=== PATIENT | female | born 1960 | race Two or more races ===

== ENCOUNTER → 2017-04-21 | Outpatient (CLI) | payer MEDICARE ==
[2017-04-21 12:31] LABS: Basophils # (A) 0.1 k/uL (0-0.2); Basophils % (A) 1 %; CH 28.5; CHCM 32.6; Eosinophils # (A) 0.1 k/uL (0-0.7); Eosinophils % (A) 1 %; HCT 39.2 % (34.0-46.0); HDW 2.11; HGB 13.1 gm/dL (11.4-16.0); Luc % (Auto) 2; Lymphocytes % (A) 32 %; MCH 29.3 pg (25.0-35.0); MCHC 33.4 g/dL (31.0-37.0); MCV 87.9 fL (80.0-100.0); Monocytes # (A) 0.6 k/uL (0-1.0); Monocytes % (A) 9 %; Neutrophils # (A) 3.5 k/uL (1.3-7.7); Neutrophils % (A) 56 %; RBC 4.46 m/uL (3.80-5.40); RDW 14.5 % (11.5-15.5); WBC 6.4 k/uL (3.8-10.6); WBC (Perox) 6.26
[2017-04-21 12:55] LABS: ALT 51 U/L (9-52); AST 29 U/L (14-36)
== END ==
LOC: LABWHC1 11:41
PROVIDERS: ATTEND Psychiatry & Neurology Neurology
DX: G35 Multiple sclerosis (principal)
CPT/HCPCS: 36415; 84450; 84460; 85025

== ENCOUNTER → 2017-12-08 | Outpatient (CLI) | payer MEDICARE ==
[2017-12-08 13:58] LABS: ALT 46 U/L (9-52); AST 25 U/L (14-36); Basophils # (A) 0.1 k/uL (0-0.2); Basophils % (A) 1 %; Eosinophils # (A) 0.1 k/uL (0-0.7); Eosinophils % (A) 1 %; HGB 13.5 gm/dL (11.4-16.0); Lymphocytes # (A) 1.8 k/uL (1.0-4.8); Lymphocytes % (A) 31 %; MCH 29.3 pg (25.0-35.0); MCV 88.8 fL (80.0-100.0); Mean Platelet Volume 9.6; Monocytes # (A) 0.5 k/uL (0-1.0); Monocytes % (A) 8 %; Neutrophils # (A) 3.2 k/uL (1.3-7.7); Neutrophils % (A) 57 %; Platelet Count 209 k/uL (150-450); RBC 4.61 m/uL (3.80-5.40); RDW 13.6 % (11.5-15.5); WBC 5.6 k/uL (3.8-10.6)
== END | disposition home or self-care (01) ==
LOC: LABWHC1 13:02
PROVIDERS: ATTEND Psychiatry & Neurology Neurology
DX: G35 Multiple sclerosis (principal)
CPT/HCPCS: 36415; 84450; 84460; 85025

== ENCOUNTER 2018-12-19 17:29 | Inpatient (IN) | payer MEDICARE ==
[2018-12-19] MEDS ORDERED: ALBUTEROL NEBULIZED 2.5 MG/3 ML INHALATION STA (17:59)
[2018-12-19] MEDS ORDERED: SODIUM CHLORIDE 0.9% 1,000 ML IV STA ×2 (17:59→18:21)
[2018-12-19] MEDS ORDERED: methylPREDNISolone SOD SUCCI 125 MG/2 ML VIAL IV STA (17:59)
[2018-12-19] MEDS ORDERED: IPRATROPIUM 0.5 MG/2.5 ML NEBU INHALATION STA (17:59)
--- NOTE | 2018-12-19 17:59 | ED ---
SOB HPI - General Chief Complaint: Shortness of Breath Stated Complaint: SOB Time Seen by Provider: 12/19/18 17:58 Source: patient, family, RN notes reviewed, old records reviewed Mode of arrival: wheelchair Limitations: physical limitation - History of Present Illness Initial Comments: This is a 50-year-old female the ER for evaluation. Patient has no history of asthma MS, patient was essay for severe shortness of breath. Feels weak feels dehydrated. Unable to take deep breaths. Denies fever, does have increased cough and congestion. Patient states she's Unable to eat, severely dehydrated and weak. No other complaints no headaches no abdominal pain no new neurological complaints MD Complaint: shortness of breath, cough, anxiety -: days(s) Radiation: other (No pain) Severity scale (1-10): 8 (Shortness of breath) Consistency: constant Improves With: rest, bronchodilators Worsens With: exertion, movement Known History Of: COPD, asthma Context: recent URI Associated Symptoms: cough, sputum production Treatments Prior to Arrival: bronchodilator - Related Data Home Medications Medication Instructions Recorded Confirmed Alendronate Sodium [Fosamax] 70 mg PO Q7D 12/19/18 12/19/18 Baclofen [Lioresal] 20 mg PO TID 12/19/18 12/19/18 Tiffany Back And Body (Unknown) 1 tab PO Q8HR PRN 12/19/18 12/19/18 Fesoterodine Fumarate [Toviaz] 8 mg PO DAILY 12/19/18 12/19/18 Fluticasone/Vilanterol [Breo 1 puff INHALATION RT-DAILY 12/19/18 12/19/18 Ellipta 100-25 Mcg Inhaler] Levothyroxine Sodium 150 mcg PO DAILY 12/19/18 12/19/18 Primidone [Mysoline] 50 mg PO TID 12/19/18 12/19/18 Simvastatin [Zocor] 20 mg PO DAILY 12/19/18 12/19/18 Tension Headache (Unknown) 1 tab PO Q4-6H 12/19/18 12/19/18 Teriflunomide [Aubagio] 14 mg PO DAILY 12/19/18 12/19/18 Allergies Allergy/AdvReac Type Severity Reaction Status Date / Time No Known Allergies Allergy Verified 12/19/18 18:31 Review of Systems ROS Statement: Those systems with pertinent positive or pertinent negative responses have been documented in the HPI. ROS Other: All systems not noted in ROS Statement are negative. Past Medical History Past Medical History: Asthma Additional Past Medical History / Comment(s): MS History of Any Multi-Drug Resistant Organisms: None Reported Past Psychological History: No Psychological Hx Reported Smoking Status: Current every day smoker Past Alcohol Use History: None Reported Past Drug Use History: None Reported General Exam Limitations: physical limitation General appearance: alert, anxious, in distress, cachectic Head exam: Present: atraumatic, normocephalic, normal inspection Eye exam: Present: normal appearance, PERRL, EOMI. Absent: scleral icterus, conjunctival injection, periorbital swelling ENT exam: Present: normal exam, mucous membranes moist Neck exam: Present: normal inspection. Absent: tenderness, meningismus, lymphadenopathy Respiratory exam: Present: respiratory distress, wheezes, accessory muscle use, decreased breath sounds, prolonged expiratory. Absent: rales, rhonchi, stridor Cardiovascular Exam: Present: normal rhythm, tachycardia, normal heart sounds. Absent: systolic murmur, diastolic murmur, rubs, gallop, clicks GI/Abdominal exam: Present: soft, normal bowel sounds. Absent: distended, tenderness, guarding, rebound, rigid Extremities exam: Present: normal inspection, full ROM, normal capillary refill. Absent: tenderness, pedal edema, joint swelling, calf tenderness Back exam: Present: normal inspection Neurological exam: Present: alert, oriented X3, CN II-XII intact Psychiatric exam: Present: normal affect, normal mood Skin exam: Present: warm, dry, intact, normal color. Absent: rash Course Vital Signs 12/19/18 12/19/18 12/19/18 17:38 17:56 18:18 Temperature 98.7 F Pulse Rate 102 H 85 Respiratory 24 20 Rate Blood Pressure 146/112 O2 Sat by Pulse 92 L Oximetry 12/19/18 12/19/18 12/19/18 18:37 18:49 19:01 Temperature Pulse Rate 93 98 101 H Respiratory Rate Blood Pressure O2 Sat by Pulse Oximetry - Reevaluation(s) Reevaluation #1: 12/19/18 19:20 Medical record reviewed Reevaluation #2: 12/19/18 19:20 no Improvement after prolonged breathing treatment Medical Decision Making - Medical Decision Making 58-year-old female the ER for evaluation, significantly acute asthma exacerbation. Severe dehydration. Patient be admitted for breathing treatments, steroids and rehydration - Lab Data Result diagrams: 12/19/18 18:15 12/19/18 18:15 Lab Results 12/19/18 12/19/18 12/19/18 Range/Units 18:15 18:15 18:15 WBC 6.5 (3.8-10.6) k/uL RBC 4.39 (3.80-5.40) m/uL Hgb 12.8 (11.4-16.0) gm/dL Hct 39.4 (34.0-46.0) % MCV 89.6 (80.0-100.0) fL MCH 29.1 (25.0-35.0) pg MCHC 32.5 (31.0-37.0) g/dL RDW 14.1 (11.5-15.5) % Plt Count 222 (150-450) k/uL Neutrophils % 79 % Lymphocytes % 9 % Monocytes % 9 % Eosinophils % 1 % Basophils % 1 % Neutrophils # 5.1 (1.3-7.7) k/uL Lymphocytes # 0.6 L (1.0-4.8) k/uL Monocytes # 0.6 (0-1.0) k/uL Eosinophils # 0.0 (0-0.7) k/uL Basophils # 0.1 (0-0.2) k/uL PT (9.0-12.0) sec INR (<1.2) APTT (22.0-30.0) sec Sodium 140 (137-145) mmol/L Potassium 3.9 (3.5-5.1) mmol/L Chloride 107 (98-107) mmol/L Carbon Dioxide 24 (22-30) mmol/L Anion Gap 9 mmol/L BUN 27 H (7-17) mg/dL Creatinine 0.62 (0.52-1.04) mg/dL Est GFR (CKD-EPI)AfAm >90 (>60 ml/min/1.73 sqM) Est GFR (CKD-EPI)NonAf >90 (>60 ml/min/1.73 sqM) Glucose 157 H (74-99) mg/dL Calcium 9.6 (8.4-10.2) mg/dL Magnesium 1.9 (1.6-2.3) mg/dL Total Bilirubin 0.3 (0.2-1.3) mg/dL AST 61 H (14-36) U/L ALT 81 H (9-52) U/L Alkaline Phosphatase 176 H (38-126) U/L NT-Pro-B Natriuret Pep 1110 pg/mL Total Protein 6.7 (6.3-8.2) g/dL Albumin 3.9 (3.5-5.0) g/dL Serum Alcohol <10 mg/dL 12/19/18 Range/Units 18:15 WBC (3.8-10.6) k/uL RBC (3.80-5.40) m/uL Hgb (11.4-16.0) gm/dL Hct (34.0-46.0) % MCV (80.0-100.0) fL MCH (25.0-35.0) pg MCHC (31.0-37.0) g/dL RDW (11.5-15.5) % Plt Count (150-450) k/uL Neutrophils % % Lymphocytes % % Monocytes % % Eosinophils % % Basophils % % Neutrophils # (1.3-7.7) k/uL Lymphocytes # (1.0-4.8) k/uL Monocytes # (0-1.0) k/uL Eosinophils # (0-0.7) k/uL Basophils # (0-0.2) k/uL PT 11.4 (9.0-12.0) sec INR 1.1 (<1.2) APTT 26.6 (22.0-30.0) sec Sodium (137-145) mmol/L Potassium (3.5-5.1) mmol/L Chloride (98-107) mmol/L Carbon Dioxide (22-30) mmol/L Anion Gap mmol/L BUN (7-17) mg/dL Creatinine (0.52-1.04) mg/dL Est GFR (CKD-EPI)AfAm (>60 ml/min/1.73 sqM) Est GFR (CKD-EPI)NonAf (>60 ml/min/1.73 sqM) Glucose (74-99) mg/dL Calcium (8.4-10.2) mg/dL Magnesium (1.6-2.3) mg/dL Total Bilirubin (0.2-1.3) mg/dL AST (14-36) U/L ALT (9-52) U/L Alkaline Phosphatase (38-126) U/L NT-Pro-B Natriuret Pep pg/mL Total Protein (6.3-8.2) g/dL Albumin (3.5-5.0) g/dL Serum Alcohol mg/dL - Radiology Data Radiology results: report reviewed (Chest x-rays negative for acute disease, ultrasound pending), image reviewed Disposition Clinical Impression: Asthma with exacerbation, Asthma with status asthmaticus, Acute exacerbation of chronic obstructive airways disease Disposition: ADMITTED IP TO THIS HOSP Condition: Undetermined Is patient prescribed a controlled substance at d/c from ED?: No Referrals: Joanna Butt DO [Primary Care Provider] - 1-2 days
[2018-12-19] MEDS ORDERED: PANTOPRAZOLE 40 MG/10 ML VIAL IVP STA (18:21)
[2018-12-19 18:34] LABS: Basophils # (A) 0.1 k/uL (0-0.2); Basophils % (A) 1 %; Eosinophils % (A) 1 %; HCT 39.4 % (34.0-46.0); HGB 12.8 gm/dL (11.4-16.0); Lymphocytes # (A) 0.6 k/uL (1.0-4.8); Lymphocytes % (A) 9 %; MCH 29.1 pg (25.0-35.0); MCHC 32.5 g/dL (31.0-37.0); MCV 89.6 fL (80.0-100.0); Mean Platelet Volume 8.6; Monocytes # (A) 0.6 k/uL (0-1.0); Monocytes % (A) 9 %; Neutrophils # (A) 5.1 k/uL (1.3-7.7); Neutrophils % (A) 79 %; Platelet Count 222 k/uL (150-450); RBC 4.39 m/uL (3.80-5.40); RDW 14.1 % (11.5-15.5); WBC 6.5 k/uL (3.8-10.6)
[2018-12-19 18:46] LABS: ALT 81 U/L (9-52); AST 61 U/L (14-36); Albumin 3.9 g/dL (3.5-5.0); Alcohol <10 mg/dL; Alkaline Phosphatase 176 U/L (38-126); Anion Gap 9 mmol/L; Blood Urea Nitrogen 27 mg/dL (7-17); Calcium 9.6 mg/dL (8.4-10.2); Carbon Dioxide 24 mmol/L (22-30); Chloride 107 mmol/L (98-107); Glucose 157 mg/dL (74-99); INR 1.1 (<1.2); Magnesium 1.9 mg/dL (1.6-2.3); Partial Thromboplastin Time 26.6 sec (22.0-30.0); Potassium 3.9 mmol/L (3.5-5.1); Prothrombin Time 11.4 sec (9.0-12.0); Sodium 140 mmol/L (137-145); Total Bilirubin 0.3 mg/dL (0.2-1.3); Total Protein 6.7 g/dL (6.3-8.2)
--- NOTE | 2018-12-19 19:10 | XR ---
EXAMINATION: XR chest 1V portable DATE AND TIME: 12/19/2018 6:29 PM CLINICAL INDICATION: PHH; sob TECHNIQUE: AP upright portable COMPARISON: None FINDINGS: Thoracic architectural distortion baseline changes noted. There is marked hyperinflation and there is marked attenuation of upper lobe vasculature consistent w ith emphysematous changes. No acute lung process is evident. Pleural spaces are negative. Cardiac mediastinal silhouette and bones and soft tissues are unremarkable. IMPRESSION: No acute process.
[2018-12-19] MEDS ORDERED: IPRATROPIUM-ALBUTEROL 3 ML NEB INHALATION STA (19:19)
[2018-12-19] MEDS: IPRATROPIUM-ALBUTEROL 3 ML NEB INHALATION SCH (20:30)
--- NOTE | 2018-12-19 21:09 | US ---
EXAMINATION TYPE: US gallbladder DATE OF EXAM: 12/19/2018 COMPARISON: NONE CLINICAL HISTORY: Pain. Pain. EXAM MEASUREMENTS: Liver Length: 16.0 cm Gallbladder Wall: 0.2 cm CBD: 0.3 cm Right Kidney: 10.3 x 4.2 x 3.5 cm Pancreas: wnl Liver: wnl Gallbladder: Appears contracted. Evidence for sonographic Paz's sign: No CBD: wnl Right Kidney: Limited due to rib shadowing. IMPRESSION: No acute process.
[2018-12-19] MEDS: SODIUM CHLORIDE 0.9% 1,000 ML IV SCH (22:01)
[2018-12-19] MEDS: methylPREDNISolone SOD SUCCI 125 MG/2 ML VIAL IV SCH (23:52)
[2018-12-20] MEDS: methylPREDNISolone SOD SUCCI 125 MG/2 ML VIAL IV SCH ×3 (06:14→17:13)
[2018-12-20] MEDS: SODIUM CHLORIDE 0.9% 1,000 ML IV SCH ×2 (06:16→17:14)
[2018-12-20] MEDS: IPRATROPIUM-ALBUTEROL 3 ML NEB INHALATION SCH ×4 (08:26→20:27)
[2018-12-20] MEDS ORDERED: Teriflunomide [Aubagio] 14 MG PO SCH (09:00)
[2018-12-20] MEDS ORDERED: NON-FORMULARY DRUG (Simvastatin [Zocor] 20 MG) PO SCH (09:00)
[2018-12-20 09:47] LABS: Basophils % (A) 0 %; Eosinophils # (A) 0.1 k/uL (0-0.7); Eosinophils % (A) 1 %; HCT 33.8 % (34.0-46.0); HGB 10.8 gm/dL (11.4-16.0); Lymphocytes # (A) 0.7 k/uL (1.0-4.8); Lymphocytes % (A) 13 %; MCH 29.4 pg (25.0-35.0); MCHC 32.1 g/dL (31.0-37.0); MCV 91.5 fL (80.0-100.0); Mean Platelet Volume 9.5; Monocytes # (A) 0.4 k/uL (0-1.0); Monocytes % (A) 7 %; Neutrophils # (A) 4.4 k/uL (1.3-7.7); Neutrophils % (A) 78 %; Platelet Count 223 k/uL (150-450); RBC 3.69 m/uL (3.80-5.40); RDW 13.8 % (11.5-15.5); WBC 5.6 k/uL (3.8-10.6)
[2018-12-20 10:05] LABS: ALT 73 U/L (9-52); AST 43 U/L (14-36); Alkaline Phosphatase 131 U/L (38-126); Anion Gap 4 mmol/L; Blood Urea Nitrogen 19 mg/dL (7-17); Calcium 8.3 mg/dL (8.4-10.2); Carbon Dioxide 24 mmol/L (22-30); Chloride 115 mmol/L (98-107); Glucose 110 mg/dL (74-99); Sodium 143 mmol/L (137-145); Total Bilirubin 0.2 mg/dL (0.2-1.3); Total Protein 5.6 g/dL (6.3-8.2)
[2018-12-20] MEDS: PRIMIDONE 50 MG TAB PO SCH ×3 (10:11→21:04)
[2018-12-20] MEDS: AZITHROMYCIN 500 MG TAB PO SCH (10:11)
[2018-12-20] MEDS: TROSPIUM CHLORIDE 20 MG TABLET PO SCH ×2 (10:11→21:46)
[2018-12-20] MEDS: NICOTINE 21MG/24HR PATCH TRANSDERM SCH (10:12)
[2018-12-20] MEDS: BACLOFEN 10 MG TAB PO SCH ×3 (10:13→21:04)
[2018-12-20 11:14] LABS: T4, Free (Free Thyroxine) 1.74 ng/dL (0.78-2.19)
--- NOTE | 2018-12-20 11:28 | P.HPIM ---
History of Present Illness H&P Date: 12/20/18 This is a 58-year-old female patient of Dr. Butt. Patient presented to the ER with complaints of increased shortness of breath. Patient reports that over the past 3 days she's been increasingly short of breath and increased weakness. Patient does have past medical history of asthma, 2 pack-a-day smoking history and MS in which she follows with Dr. Montano. Patient's troponin also slightly e levated, 0.099, 0.075 and 0.052. EKG completed showing normal sinus rhythm, septal infarct, age undetermined. Cardiology services have been consulted. Chest x-ray completed showing no acute process. started on Solu-Medrol IV and azithromycin for antibiotic. Per nursing staff during the night patient expressed suicidal ideation with the plan. Patient was placed on suicide precautions psychiatry services have been consulted. At this time patient doesn't state some improvement with shortness of breath. Patient does have a sitter and at bedside. This time patient denies chest pain. Patient denies nausea vomiting or diarrhea. Patient denies any urinary burning or frequency Review of Systems Please refer to HPI otherwise unremarkable Past Medical History Past Medical History: Asthma, COPD Additional Past Medical History / Comment(s): MS History of Any Multi-Drug Resistant Organisms: None Reported Past Anesthesia/Blood Transfusion Reactions: No Reported Reaction Past Psychological History: No Psychological Hx Reported Smoking Status: Current every day smoker Past Alcohol Use History: None Reported Past Drug Use History: None Reported Medications and Allergies Home Medications Medication Instructions Recorded Confirmed Type Alendronate Sodium [Fosamax] 70 mg PO Q7D 12/19/18 12/19/18 History Baclofen [Lioresal] 20 mg PO TID 12/19/18 12/19/18 History Tiffany Back And Body (Unknown) 1 tab PO Q8HR PRN 12/19/18 12/19/18 History Fesoterodine Fumarate [Toviaz] 8 mg PO DAILY 12/19/18 12/19/18 History Fluticasone/Vilanterol [Breo 1 puff INHALATION RT-DAILY 12/19/18 12/19/18 History Ellipta 100-25 Mcg Inhaler] Levothyroxine Sodium 150 mcg PO DAILY 12/19/18 12/19/18 History Primidone [Mysoline] 50 mg PO TID 12/19/18 12/19/18 History Simvastatin [Zocor] 20 mg PO DAILY 12/19/18 12/19/18 History Tension Headache (Unknown) 1 tab PO Q4-6H 12/19/18 12/19/18 History Teriflunomide [Aubagio] 14 mg PO DAILY 12/19/18 12/19/18 History Allergies Allergy/AdvReac Type Severity Reaction Status Date / Time No Known Allergies Allergy Verified 12/19/18 18:31 Physical Exam Vitals: Vital Signs Temp Pulse Pulse Resp BP BP Pulse Ox 12/20/18 08:38 100 12/20/18 08:27 100 12/20/18 04:00 97.9 F 75 18 147/62 98 12/20/18 03:34 18 12/20/18 00:00 98.4 F 80 18 103/51 96 12/19/18 22:02 98.8 F 97 18 117/54 97 12/19/18 20:34 92 12/19/18 20:24 91 12/19/18 19:01 101 H 12/19/18 19:00 99.1 F 101 H 136/88 99 12/19/18 18:49 98 12/19/18 18:37 93 12/19/18 18:30 87 142/92 100 12/19/18 18:18 85 12/19/18 18:00 90 126/95 96 12/19/18 17:56 20 12/19/18 17:53 91 L 12/19/18 17:38 98.7 F 102 H 24 146/112 92 L Intake and Output 12/19/18 12/20/18 12/20/18 22:59 06:59 14:59 Intake Total 400 200 0 Balance 400 200 0 Intake: Intake, IV Titration 200 200 Amount Sodium Chloride 0.9% 1, 200 200 000 ml @ 100 mls/hr IV . Q10H [facility] Rx#:[id number] Oral 200 0 Other: Voiding Method Incontinent # Voids 1 1 Weight 45.359 kg 45 kg Head normocephalic Neck supple Lungs diminshed bilaterally with expiratory wheezing Heart regular rate and rhythm S1-S2, no rub or gallop Abdomen is soft nontender nondistended positive bowel sounds no hepatosplenomegaly Extremities no edema Neuro alert and orientated to 3 Results CBC & Chem 7: 12/20/18 06:27 12/20/18 06:27 Labs: Abnormal Lab Results - Last 24 Hours (Table) 12/19/18 12/19/18 12/19/18 Range/Units 18:15 18:15 18:15 RBC (3.80-5.40) m/uL Hgb (11.4-16.0) gm/dL Hct (34.0-46.0) % Lymphocytes # 0.6 L (1.0-4.8) k/uL Chloride (98-107) mmol/L BUN 27 H (7-17) mg/dL Creatinine (0.52-1.04) mg/dL Glucose 157 H (74-99) mg/dL Calcium (8.4-10.2) mg/dL AST 61 H (14-36) U/L ALT 81 H (9-52) U/L Alkaline Phosphatase 176 H (38-126) U/L Troponin I 0.099 H* (0.000-0.034) ng/mL Total Protein (6.3-8.2) g/dL Albumin (3.5-5.0) g/dL TSH (0.465-4.680) mIU/L 12/20/18 12/20/18 12/20/18 Range/Units 00:07 06:27 06:27 RBC 3.69 L (3.80-5.40) m/uL Hgb 10.8 L (11.4-16.0) gm/dL Hct 33.8 L (34.0-46.0) % Lymphocytes # 0.7 L (1.0-4.8) k/uL Chloride (98-107) mmol/L BUN (7-17) mg/dL Creatinine (0.52-1.04) mg/dL Glucose (74-99) mg/dL Calcium (8.4-10.2) mg/dL AST (14-36) U/L ALT (9-52) U/L Alkaline Phosphatase (38-126) U/L Troponin I 0.075 H* 0.052 H* (0.000-0.034) ng/mL Total Protein (6.3-8.2) g/dL Albumin (3.5-5.0) g/dL TSH (0.465-4.680) mIU/L 03/26/19 Range/Units 06:27 RBC (3.80-5.40) m/uL Hgb (11.4-16.0) gm/dL Hct (34.0-46.0) % Lymphocytes # (1.0-4.8) k/uL Chloride 115 H (98-107) mmol/L BUN 19 H (7-17) mg/dL Creatinine 0.47 L (0.52-1.04) mg/dL Glucose 110 H (74-99) mg/dL Calcium 8.3 L (8.4-10.2) mg/dL AST 43 H (14-36) U/L ALT 73 H (9-52) U/L Alkaline Phosphatase 131 H (38-126) U/L Troponin I (0.000-0.034) ng/mL Total Protein 5.6 L (6.3-8.2) g/dL Albumin 3.0 L (3.5-5.0) g/dL TSH <0.015 L (0.465-4.680) mIU/L Thrombosis Risk Factor Assmnt - Choose All That Apply Any of the Below Risk Factors Present?: Yes Each Factor Represents 1 point: Age 41-60 years Other Risk Factors: No Other congenital or acquired thrombophilia - If yes, enter type in comment: No Thrombosis Risk Factor Assessment Total Risk Factor Score: 1 Thrombosis Risk Factor Assessment Level: Low Risk Assessment and Plan Assessment: 1. Shortness of breath with acute asthma exacerbation and acute exacerbation of chronic obstructive airway disease. Chest x-ray completed in ER showing no a cute process. Patient has been started on Solu-Medrol 60 mg. Pulmonary services have been consulted. Patient started on azithromycin. Sputum culture ordered. Repeat 2 view chest x-ray ordered for a.m. 2. Elevated troponins. Troponins 0.099, 0.075 0.052 cardiology services have been consulted. 3. Elevated liver enzymes. Initial AST 61, ALT 81 and alkaline phosphatase 176. Gallbladder ultrasound was completed showing no acute process. Liver enzymes are trending down. Statin currently on hold 4. Suicidal ideation. Patient expressed suicide plan to nursing staff throughout night. Patient maintained on suicide precautions. Psychology service is requested 5. Nicotine dependence. Patient reports she smokes 2 packs per day. Patient educated greater than 3 minutes on smoking cessation. Nicotine patch ordered 6. Multiple sclerosis. Home medications resumed. Patient reports she follows with Dr. Walsh for neurology services DVT prophylaxis Lovenox. GI prophylaxis Protonix Patient maintained on suicide precautions. Pulmonary, cardiology and psychiatry services consulted Patient maintained on Solu-Medrol, DuoNeb breathing treatments and azithromycin Time with Patient: Greater than 30 (Greater than 60% of the total time spent in counseling and coordination of care. I performed an examination of the patient and discussed their management with the Nurse Practitioner. I have reviewed the Nurse Practitioner's notes and agree with the documented findings and plan of care)
[2018-12-20] MEDS: ENOXAPARIN 40 MG/0.4 ML SYRINGE SQ SCH (12:57)
--- NOTE | 2018-12-20 17:17 | CONS ---
CONSULTATION REASON FOR CONSULTATION: Elevated troponin. This is a 58-year-old lady who has history of bronchial asthma and multiple sclerosis. She came into the hospital with complaints of increasing shortness of breath for the past 3-4 days and weakness and lack of energy. She has history of bronchial asthma, 2+ pack/years of smoking history and also multiple sclerosis. She sees Dr. Rocha from a primary care standpoint. She has apparently been hypoxic almost, wheezing for 3-4 days. After arrival, her troponin levels have been in the range of 0.09, 0.07 and 0.05. EKG shows sinus rhythm with poor R-wave progression. No acute changes are noted. Troponin elevation seems to be the result of some hypoxemia as a result of her exacerbation of COPD. After she arrived, she complained of some suicidal thoughts and therefore she is now being placed on a suicidal watch with a sitter and her . Denies any symptoms of chest pain. She insists that she did have chest pain even yesterday; all she had was shortness of breath. She seems to be pretty positive and does not have any negative thoughts. PAST MEDICAL HISTORY: Remarkable for asthma, bronchial asthma, multiple sclerosis, COPD, past history of smoking. SOCIAL HISTORY: Patient does not consume alcohol but smokes every day more than 2 packs. ALLERGIES: NONE. MEDICATIONS: 1. Fosamax. 2. Steroid inhaler. 3. Levothyroxine. 4. Simvastatin 20 mg daily. 5. Vitamins. PHYSICAL EXAMINATION: On examination, blood pressure is 127/70. Pulse rate is about 80 per minute, regular. HEENT unremarkable. Fundus was not examined by me. Neck is supple. There is JVD of 1 cm. No carotid bruit. Heart exam reveals S1, S2 heard normally. Heart sounds are heard distantly. There is a lot of respiratory noise. There are no murmurs. Lungs reveal scattered expiratory rhonchi. Abdomen is soft, nontender. Lower extremities reveal diminished pulses. CENTRAL NERVOUS SYSTEM: Grossly no focal deficits. EKG revealed a sinus mechanism with a lot of artifact, poor R-wave progression. No acute changes. We will need to repeat EKG. I reviewed the labs and noted that patient's thyroid levels are slightly higher with a low TSH. IMPRESSION: 1. Elevated troponin noted here. It is probably a reflection of some hypoxemia for nearly 72 hours or so. It does not represent primary myocardial infarction. 2. Exacerbation of chronic obstructive pulmonary disease. 3. History of smoking. 4. Suicidal ideation. RECOMMENDATIONS: From a cardiac standpoint, I am recommending that we decrease the Synthroid from 150 to 112 mcg daily. She is on steroids and also on bronchodilators. We will continue the subcutaneous Lovenox that has been ordered. We will obtain an echocardiogram to assess LV function. Based on clinical course, I will make further recommendations. This does not suggest acute myocardial injury, but given patient's risk factors, it is quite possible that she may have underlying CAD. We will reduce the dose of Synthroid, obtain echocardiogram, continue Lovenox and based on clinical course make further recommendations. Thank you very much for the consult. TOREY / DEISY: [id number] /
[2018-12-21] MEDS: methylPREDNISolone SOD SUCCI 125 MG/2 ML VIAL IV SCH ×5 (00:11→22:46)
[2018-12-21] MEDS: SODIUM CHLORIDE 0.9% 1,000 ML IV SCH ×3 (01:30→20:54)
[2018-12-21] MEDS: IPRATROPIUM-ALBUTEROL 3 ML NEB INHALATION SCH ×4 (05:53→20:28)
[2018-12-21] MEDS: SYMBICORT 80-4.5 MCG INHALER INHALATION SCH ×2 (05:53→20:28)
[2018-12-21] MEDS: LEVOTHYROXINE 112 MCG TAB PO SCH (06:08)
[2018-12-21] MEDS: PANTOPRAZOLE 40 MG TABLET PO SCH (06:08)
[2018-12-21] MEDS ORDERED: LEVOTHYROXINE 75 MCG TAB PO SCH (06:30)
[2018-12-21] MEDS ORDERED: LEVOTHYROXINE 125 MCG TAB PO SCH (06:30)
[2018-12-21 06:42] LABS: Basophils % (A) 0 %; Eosinophils # (A) 0.1 k/uL (0-0.7); Eosinophils % (A) 1 %; HCT 33.6 % (34.0-46.0); HGB 10.8 gm/dL (11.4-16.0); Lymphocytes # (A) 0.8 k/uL (1.0-4.8); Lymphocytes % (A) 16 %; MCH 29.4 pg (25.0-35.0); MCV 91.9 fL (80.0-100.0); Mean Platelet Volume 8.9; Monocytes # (A) 0.5 k/uL (0-1.0); Monocytes % (A) 9 %; Neutrophils % (A) 73 %; Platelet Count 199 k/uL (150-450); RBC 3.66 m/uL (3.80-5.40); RDW 14.5 % (11.5-15.5); WBC 5.5 k/uL (3.8-10.6)
[2018-12-21 06:57] LABS: ALT 65 U/L (9-52); AST 37 U/L (14-36); Alkaline Phosphatase 121 U/L (38-126); Anion Gap 4 mmol/L; Blood Urea Nitrogen 13 mg/dL (7-17); Calcium 8.4 mg/dL (8.4-10.2); Carbon Dioxide 25 mmol/L (22-30); Chloride 113 mmol/L (98-107); Glucose 105 mg/dL (74-99); Potassium 4.1 mmol/L (3.5-5.1); Sodium 142 mmol/L (137-145); Total Bilirubin 0.2 mg/dL (0.2-1.3); Total Protein 5.5 g/dL (6.3-8.2)
--- NOTE | 2018-12-21 08:54 | XR ---
EXAMINATION TYPE: XR chest 2V DATE OF EXAM: 12/21/2018 COMPARISON: 12/19/2018 HISTORY: 58-year-old female ICU follow-up TECHNIQUE: AP and lateral views FINDINGS: Patient is rotated towards the right. Heart normal size. Hyperinflation. Trace effusion seen on the l ateral view. Otherwise, no consolidation or pleural effusion. IMPRESSION: COPD and trace effusions on the lateral view.
[2018-12-21] MEDS ORDERED: ENOXAPARIN 40 MG/0.4 ML SYRINGE SQ SCH (09:00)
[2018-12-21] MEDS: PRIMIDONE 50 MG TAB PO SCH ×3 (09:43→20:54)
[2018-12-21] MEDS: ENOXAPARIN 40 MG/0.4 ML SYRINGE SQ SCH (09:43)
[2018-12-21] MEDS: AZITHROMYCIN 500 MG TAB PO SCH (09:43)
[2018-12-21] MEDS: NICOTINE 21MG/24HR PATCH TRANSDERM SCH (09:43)
[2018-12-21] MEDS: BACLOFEN 10 MG TAB PO SCH ×3 (09:43→20:54)
[2018-12-21] MEDS: TROSPIUM CHLORIDE 20 MG TABLET PO SCH ×2 (09:44→20:54)
--- NOTE | 2018-12-21 11:04 | P.CNPUL ---
History of Present Illness Consult date: 12/21/18 Requesting physician: Audrey Jessica Reason for consult: dyspnea Chief complaint: Shortness of breath History of present illness: This is a pleasant 58-year-old frail cachectic female patient who follows with Dr. Butt as her primary care physician. She has a history of chronic bronchial asthma, multiple sclerosis, chronic and ongoing tobacco dependence 2 packs per day, hyperlipidemia, hypothyroidism. She presented here to the emergency room on 12/19/2018 with complaints of increasing shortness of breath, weakness, dehydration. She's been unable to eat. She is extremely cachectic. Chest x-ray showed no acute pulmonary process. White count 5.5. Hemoglobin 10.8. Creatinine 0.45. Troponin 0.099, 0.075, 0.052. TSH less than 0.015. AST 37, ALT 65. The patient is seen today in consultation on the selective care unit. She is currently awake and alert in no acute distress. She is maintained on Breo and albuterol in the outpatient setting. She's been initiated on DuoNeb inhalations, Symbicort, IV Solu-Medrol. Antibiotics in the form of azithromycin. NicoDerm patch is in place. Her weight is 43 kg. She has expressed suicidal ideations to the nursing staff. A sitter is at the bedside. Review of Systems REVIEW OF SYSTEMS: CONSTITUTIONAL: Continued and ongoing weight loss. EYES: Denies change in vision. EARS, NOSE, MOUTH, THROAT: Denies headaches, denies sore throat. CARDIOVASCULAR: Denies chest pain, palpitations or syncopal episodes. RESPIRATORY: Positive for shortness of breath, cough, congestion no hemoptysis. GASTROINTESTINAL: Denies change in appetite, denies abdominal pain GENITOURINARY: Denies hematuria, denies infections. MUSKULOSKELETAL: Denies pain, denies swelling. INTEGUMENTARY: Denies rash, denies eczema. NEUROLOGICAL: Denies recent memory loss, no recent seizure activity. PSYCHIATRIC: Positive for depression, suicidal ideation. HEMATOLOGIC/LYMPHATIC: Denies anemia, denies enlarged lymph nodes. Past Medical History Past Medical History: Asthma, COPD, Hyperlipidemia, Thyroid Disorder Additional Past Medical History / Comment(s): MS History of Any Multi-Drug Resistant Organisms: None Reported Past Anesthesia/Blood Transfusion Reactions: No Reported Reaction Past Psychological History: No Psychological Hx Reported Smoking Status: Current every day smoker Past Alcohol Use History: None Reported Past Drug Use History: None Reported Medications and Allergies Home Medications Medication Instructions Recorded Confirmed Type Alendronate Sodium [Fosamax] 70 mg PO Q7D 12/19/18 12/19/18 History Baclofen [Lioresal] 20 mg PO TID 12/19/18 12/19/18 History Tiffany Back And Body (Unknown) 1 tab PO Q8HR PRN 12/19/18 12/19/18 History Fesoterodine Fumarate [Toviaz] 8 mg PO DAILY 12/19/18 12/19/18 History Fluticasone/Vilanterol [Breo 1 puff INHALATION RT-DAILY 12/19/18 12/19/18 History Ellipta 100-25 Mcg Inhaler] Levothyroxine Sodium 150 mcg PO DAILY 12/19/18 12/19/18 History Primidone [Mysoline] 50 mg PO TID 12/19/18 12/19/18 History Simvastatin [Zocor] 20 mg PO DAILY 12/19/18 12/19/18 History Tension Headache (Unknown) 1 tab PO Q4-6H 12/19/18 12/19/18 History Teriflunomide [Aubagio] 14 mg PO DAILY 12/19/18 12/19/18 History Allergies Allergy/AdvReac Type Severity Reaction Status Date / Time No Known Allergies Allergy Verified 12/19/18 18:31 Physical Exam Vitals: Vital Signs Temp Pulse Pulse Resp BP Pulse Ox 12/21/18 08:00 98.1 F 92 17 113/83 94 L 12/21/18 06:19 72 12/21/18 05:53 72 12/21/18 04:00 98.4 F 75 18 141/79 98 12/21/18 00:00 98.4 F 77 18 123/68 98 12/20/18 20:40 100 12/20/18 20:27 98 12/20/18 20:00 98.6 F 97 20 120/64 94 L 12/20/18 16:33 100 12/20/18 16:19 98 95 12/20/18 16:00 82 16 123/63 97 12/20/18 13:08 100 12/20/18 12:57 100 12/20/18 12:00 90 16 127/59 92 L Intake and Output 12/20/18 12/21/18 12/21/18 22:59 06:59 14:59 Intake Total 340 350 Balance 340 350 Intake: Intake, IV Titration 300 Amount Sodium Chloride 0.9% 1, 300 000 ml @ 100 mls/hr IV . Q10H [facility] Rx#:[id number] Oral 340 50 Other: Voiding Method Incontinent Incontinent Incontinent # Voids 2 1 # Bowel Movements 1 1 Weight 43 kg GENERAL EXAM: Frail, cachectic 58-year-old female. Alert, comfortable in no a pparent distress. On 2 L nasal cannula HEAD: Normocephalic. EYES: Normal reaction of pupils, equal size. NOSE: Clear with pink turbinates. THROAT: No erythema or exudates. NECK: No masses, no JVD. CHEST: No chest wall deformity. LUNGS: Equal air entry with bilateral end expiratory wheeze. Diminished. CVS: S1 and S2 normal with no audible murmur, regular rhythm. ABDOMEN: No hepatosplenomegaly, normal bowel sounds, no guarding or rigidity. SPINE: No scoliosis or deformity SKIN: No rashes. Multiple tattoos. CENTRAL NERVOUS SYSTEM: No focal deficits, tone is normal in all 4 extremities. EXTREMITIES: There is no peripheral edema. No clubbing, no cyanosis. Peripheral pulses are intact. Results - Laboratory Findings CBC and BMP: 12/21/18 06:16 12/21/18 06:16 PT/INR, D-dimer PT 11.4 sec (9.0-12.0) 12/19/18 18:15 INR 1.1 (<1.2) 12/19/18 18:15 Abnormal lab findings: Abnormal Labs 12/19/18 12/19/18 12/19/18 18:15 18:15 18:15 RBC Hgb Hct Lymphocytes # 0.6 L Chloride BUN 27 H Creatinine Glucose 157 H Calcium AST 61 H ALT 81 H Alkaline Phosphatase 176 H Troponin I 0.099 H* Total Protein Albumin MERGED WITH [facility] 12/20/18 12/20/18 12/20/18 00:07 06:27 06:27 RBC 3.69 L Hgb 10.8 L Hct 33.8 L Lymphocytes # 0.7 L Chloride BUN Creatinine Glucose Calcium AST ALT Alkaline Phosphatase Troponin I 0.075 H* 0.052 H* Total Protein Albumin MERGED WITH [facility] 12/20/18 12/21/18 12/21/18 06:27 06:16 06:16 RBC 3.66 L Hgb 10.8 L Hct 33.6 L Lymphocytes # 0.8 L Chloride 115 H 113 H BUN 19 H Creatinine 0.47 L 0.45 L Glucose 110 H 105 H Calcium 8.3 L AST 43 H 37 H ALT 73 H 65 H Alkaline Phosphatase 131 H Troponin I Total Protein 5.6 L 5.5 L Albumin 3.0 L 3.0 L TSH <0.015 L - Diagnostic Findings Chest x-ray: image reviewed (No acute pulmonary process) Assessment and Plan Assessment: Impression: #1 Acute exacerbation of moderate persistent chronic bronchial asthma. #2 Acute exacerbation of chronic obstructive pulmonary disease. #3 Chronic and ongoing tobacco dependence at 2 packs per day. #4 Multiple sclerosis, advanced with progressive weight loss and cachexia. Current weight 43 kg. #5 Hypothyroidism. #6 Hyperlipidemia. #7 Suicidal ideations. Plan: The patient was seen and evaluated by Dr. Winston. Chest x-ray and labs were reviewed. We'll continue with her current treatment plan including DuoNeb inhalations, Symbicort, IV solu Medrol. Empiric antibiotics in the form of azithromycin. She is educated regarding the importance of complete smoking cessation. NicoDerm patch is in place. She may benefit from a follow-up in our office to perform pulmonary function testing to evaluate the severity of her COPD. She probably also has some restrictive lung disease based on her muscle weakness secondary to multiple sclerosis. We will continue to follow make further recommendations based on her clinical status. I, the cosigning physician, performed a history & physical examination of the patient. Lungs sounds with end expiratory wheeze, diminished. Maintaining good O2 saturations in the 90s on 2 L/m per nasal cannula. I discussed the assessment and plan of care with my nurse practitioner, Leonora Gibbs. I attest to the above note as dictated by her. Time with Patient: Greater than 30
--- NOTE | 2018-12-21 11:51 | ECHOF ---
Referral Reason:abn trop MEASUREMENTS -------- HEIGHT: 172.7 cm WEIGHT: 44.9 kg BP: 127/59 IVSd: 1.0 cm (0.6 - 1.1) LVIDd: 2.9 cm (3.9 - 5.3) LVPWd: 1.1 cm (0.6 - 1.1) IVSs: 1.3 cm LVIDs: 1.6 cm LVPWs: 1.3 cm LAESV Index (A-L): 10.69 ml/m Ao Diam: 2.8 cm (2.0 - 3.7) AV Cusp: 1.7 cm (1.5 - 2.6) LA Diam: 2.7 cm (2.7 - 3.8) MV EXCURSION: 15.965 mm (> 18.000) MV EF SLOPE: 64 mm/s (70 - 150) EPSS: 2.4 cm MV E Aubrey: 1.02 m/s MV DecT: 170 ms MV A Aubrey: 1.22 m/s MV E/A Ratio: 0.84 RAP: 5.00 mmHg RVSP: 11.59 mmHg FINDINGS -------- Resting tachycardia (HR>100bpm). This was a technically good study. The left ventricular size is normal. Left ventricular wall thickness is normal. Overall left vent ricular systolic function is normal with, an EF between 55 - 60 %. The right ventricle is normal in size. Normal LA size by volume 22+/-6 ml/m2. The right atrial size is normal. The aortic valve is trileaflet and appears structurally normal. There is trace mitral regurgitation. Trace tricuspid regurgitation present. The right ventricular systolic pressure, as measured by Dopp ler, is 11.59mmHg. Pulmonic valve appears structurally normal. The aortic root size is normal. Normal inferior vena cava with normal inspiratory collapse consistent with estimated right atrial pre ssure of 5 mmHg. The pericardium is normal. CONCLUSIONS -------- 1. Resting tachycardia (HR>100bpm). 2. This was a technically good study. 3. The left ventricular size is normal. 4. Left ventricular wall thickness is normal. 5. Overall left ventricular systolic function is normal with, an EF between 55 - 60 %. 6. The right ventricle is normal in size. 7. Normal LA size by volume 22+/-6 ml/m2. 8. The right atrial size is normal. 9. The aortic valve is trileaflet and appears structurally normal. 10. There is trace mitral regurgitation. 11. Trace tricuspid regurgitation present. 12. The right ventricular systolic pressure, as measured by Doppler, is 11.59mmHg. 13. Pulmonic valve appears structurally normal. 14. The aortic root size is normal. 15. Normal inferior vena cava with normal inspiratory collapse consistent with estimated right atrial pressure of 5 mmHg. 16. The pericardium is normal. POLE PEELING MACHINE OPERATOR HELPER: Marialuisa Matta RDCS
--- NOTE | 2018-12-21 12:00 | P.PN ---
Subjective Progress Note Date: 12/21/18 This is a 58-year-old female patient of Dr. Butt. Patient presented to the ER with complaints of increased shortness of breath. Patient reports that over the past 3 days she's been increasingly short of breath and increased weakness. Patient does have past medical history of asthma, 2 pack-a-day smoking history and MS in which she follows with Dr. Montano. Patient's troponin also slightly elevated, 0.099, 0.075 and 0.052. EKG completed showing normal sinus rhythm, septal infarct, age undetermined. Cardiology services have been consulted. Chest x-ray completed showing no acute process. started on Solu-Medrol IV and azithromycin for antibiotic. Per nursing staff during the night patient e xpressed suicidal ideation with the plan. Patient was placed on suicide precautions psychiatry services have been consulted. At this time patient doesn't state some improvement with shortness of breath. Patient does have a sitter and at bedside. This time patient denies chest pain. Patient denies nausea vomiting or diarrhea. Patient denies any urinary burning or frequency On 12/21/2017 patient is resting comfortably in bed. Patient does have sitter at bedside. Patient is still short of breath at this time. Patient remains on IV Solu-Medrol and DuoNeb breathing treatments. Patient currently on azithromycin for antibiotics. Patient is being followed by pulmonary and cardiology services. Patient also to be evaluated by by psychiatry Objective - Vital Signs Vital signs: Vital Signs Temp 98.1 F 12/21/18 08:00 Pulse 92 12/21/18 08:00 Resp 17 12/21/18 08:00 BP 113/83 12/21/18 08:00 Pulse Ox 94 L 12/21/18 08:00 Intake & Output 12/20/18 12/21/18 12/21/18 18:59 06:59 18:59 Intake Total 640 450 120 Balance 640 450 120 Weight 45 kg 43 kg Intake: Intake, IV Titration 400 300 Amount Sodium Chloride 0.9% 1, 400 300 000 ml @ 100 mls/hr IV . Q10H [facility] Rx#:[id number] Oral 240 150 120 Other: Voiding Method Incontinent Incontinent Incontinent # Voids 3 1 # Bowel Movements 1 - Exam Head normocephalic Neck supple Lungs diminished bilaterally with expiratory wheezing Heart regular rate and rhythm S1-S2, no rub or gallop Abdomen is soft nontender nondistended positive bowel sounds no hepatosplenomegaly Extremities no edema Neuro alert and orientated to 3 - Labs CBC & Chem 7: 12/21/18 06:16 12/21/18 06:16 Labs: Abnormal Lab Results - Last 24 Hours (Table) 12/21/18 12/21/18 Range/Units 06:16 06:16 RBC 3.66 L (3.80-5.40) m/uL Hgb 10.8 L (11.4-16.0) gm/dL Hct 33.6 L (34.0-46.0) % Lymphocytes # 0.8 L (1.0-4.8) k/uL Chloride 113 H (98-107) mmol/L Creatinine 0.45 L (0.52-1.04) mg/dL Glucose 105 H (74-99) mg/dL AST 37 H (14-36) U/L ALT 65 H (9-52) U/L Total Protein 5.5 L (6.3-8.2) g/dL Albumin 3.0 L (3.5-5.0) g/dL Assessment and Plan Assessment: 1. Shortness of breath with acute asthma exacerbation and acute exacerbation of chronic obstructive airway disease. Chest x-ray completed in ER showing no acute process. Patient has been started on Solu-Medrol 60 mg. Pulmonary services have been consulted. Patient started on azithromycin. Sputum culture ordered. Repeat chest x-ray completed showing COPD and trace effusions on the lateral view. pulmonary services are following 2. Elevated troponins. Troponins 0.099, 0.075 0.052. 2-D echo completed showing an EF of 55-60%. Per cardiology services elevated troponin likely reflection of hypoxemia 3. Elevated liver enzymes. Initial AST 61, ALT 81 and alkaline phosphatase 176. Gallbladder ultrasound was completed showing no acute process. Liver enzymes are trending down. Statin currently on hold 4. Suicidal ideation. Patient expressed suicide plan to nursing staff throughout night. Patient maintained on suicide precautions. Psychology service is requested 5. Nicotine dependence. Patient reports she smokes 2 packs per day. Patient educated greater than 3 minutes on smoking cessation. Nicotine patch ordered 6. Multiple sclerosis. Home medications resumed. Patient reports she follows with Dr. Walsh for neurology services 7. Hypothyroidism. Patient's TSH level less than 0.015. Patient's Synthroid has been reduced 112 mcgs per cardiology DVT prophylaxis Lovenox. GI prophylaxis Protonix Patient maintained on suicide precautions. Pulmonary, cardiology and psychiatry services consulted Patient maintained on Solu-Medrol, DuoNeb breathing treatments and azithromycin I performed an examination of the patient and discussed their management with the Nurse Practitioner. I have reviewed the Nurse Practitioner's notes and agree with the documented findings and plan of care
--- NOTE | 2018-12-21 12:43 | P.PN ---
Subjective Progress Note Date: 12/21/18 This is a 58-year-old female patient with history of bronchial asthma and multiple sclerosis who came to the hospital with symptoms of shortness of breath, patient also had suicidal ideations and for this reason has a sitter at bedside. Troponins came back on her to be abnormal and for this reason a cardi ology consultation at been requested. She did have an echocardiogram with Doppler study performed which revealed a normal left ventricular systolic function. Troponins were not consistent with acute coronary syndrome and more likely secondary to hypoxia Objective - Vital Signs Vital signs: Vital Signs Temp 98.1 F 12/21/18 08:00 Pulse 80 12/21/18 12:16 Resp 17 12/21/18 08:00 BP 113/83 12/21/18 08:00 Pulse Ox 94 L 12/21/18 12:07 Intake & Output 12/20/18 12/21/18 12/21/18 18:59 06:59 18:59 Intake Total 640 450 120 Balance 640 450 120 Weight 45 kg 43 kg Intake: Intake, IV Titration 400 300 Amount Sodium Chloride 0.9% 1, 400 300 000 ml @ 100 mls/hr IV . Q10H [facility] Rx#:[id number] Oral 240 150 120 Other: Voiding Method Incontinent Incontinent Incontinent # Voids 3 1 # Bowel Movements 1 - Exam Head normocephalic Neck supple Lungs diminished bilaterally with expiratory wheezing Heart regular rate and rhythm S1-S2, no rub or gallop Abdomen is soft nontender nondistended positive bowel sounds no hepatosplenomegaly Extremities no edema Neuro alert and orientated to 3 - Labs CBC & Chem 7: 12/21/18 06:16 12/21/18 06:16 Labs: Abnormal Lab Results - Last 24 Hours (Table) 12/21/18 12/21/18 Range/Units 06:16 06:16 RBC 3.66 L (3.80-5.40) m/uL Hgb 10.8 L (11.4-16.0) gm/dL Hct 33.6 L (34.0-46.0) % Lymphocytes # 0.8 L (1.0-4.8) k/uL Chloride 113 H (98-107) mmol/L Creatinine 0.45 L (0.52-1.04) mg/dL Glucose 105 H (74-99) mg/dL AST 37 H (14-36) U/L ALT 65 H (9-52) U/L Total Protein 5.5 L (6.3-8.2) g/dL Albumin 3.0 L (3.5-5.0) g/dL Assessment and Plan Plan: assessment and plan 1. Shortness of breath with acute asthma exacerbation and acute exacerbation of chronic obstructive airway disease. 2. Elevated troponins. Not consistent with acute coronary syndrome. 2-D echo completed showing an EF of 55-60%. 3. Elevated liver enzymes. 4. Suicidal ideation. 5. Nicotine dependence. 6. Multiple sclerosis. 7. Hypothyroidism. plan From cardiology's perspective, we'll follow this patient with you now on an as- needed basis only, please dont hesitate to call with any questions. DNP note has been reviewed, I agree with a documented findings and plan of care. Patient was seen and examined.
--- NOTE | 2018-12-21 15:50 | P.CN ---
Psychiatric Consult - . Consult date: 12/21/18 Consult:: This is a 58-year-old female patient of Dr. Butt. Patient presented to the ER with complaints of increased shortness of breath. Patient reports that over the past 3 days she's been increasingly short of breath and increased weakness. Patient does have past medical history of asthma, 2 pack-a-day smoking history and MS in which she follows with Dr. Montano. Patient's troponin also slightly elevated, 0.099, 0.075 and 0.052. EKG completed showing normal sinus rhythm, septal infarct, age undetermined. Cardiology services have been consulted. Chest x-ray completed showing no acute process. started on Solu-Medrol IV and azithromycin for antibiotic. Per nursing staff during the night patient expressed suicidal ideation with the plan. Patient was placed on suicide precautions psychiatry services have been consulted. At this time patient doesn't state some improvement with shortness of breath. Patient does have a sitter and at bedside. This time patient denies chest pain. Patient de nies nausea vomiting or diarrhea. Patient denies any urinary burning or frequency Past Medical History Past Medical History: Asthma, COPD Additional Past Medical History / Comment(s): MS History of Any Multi-Drug Resistant Organisms: None Reported Past Anesthesia/Blood Transfusion Reactions: No Reported Reaction Past Psychological History: No Psychological Hx Reported Smoking Status: Current every day smoker Past Alcohol Use History: None Reported Past Drug Use History: None Reported Medications and Allergies Home Medications Medication Instructions Recorded Confirmed Type Alendronate Sodium [Fosamax] 70 mg PO Q7D 12/19/18 12/19/18 History Baclofen [Lioresal] 20 mg PO TID 12/19/18 12/19/18 History Tiffany Back And Body (Unknown) 1 tab PO Q8HR PRN 12/19/18 12/19/18 History Fesoterodine Fumarate [Toviaz] 8 mg PO DAILY 12/19/18 12/19/18 History Fluticasone/Vilanterol [Breo 1 puff INHALATION RT-DAILY 12/19/18 12/19/18 History Ellipta 100-25 Mcg Inhaler] Levothyroxine Sodium 150 mcg PO DAILY 12/19/18 12/19/18 History Primidone [Mysoline] 50 mg PO TID 12/19/18 12/19/18 History Simvastatin [Zocor] 20 mg PO DAILY 12/19/18 12/19/18 History Tension Headache (Unknown) 1 tab PO Q4-6H 12/19/18 12/19/18 History Teriflunomide [Aubagio] 14 mg PO DAILY 12/19/18 12/19/18 History Allergies Allergy/AdvReac Type Severity Reaction Status Date / Time No Known Allergies Allergy Verified 12/19/18 18:31 Mental Status Examination - The patient presents alert, pleasant, and cooperative. There calmly seated without any agitated behavior. [she] reports that [her] mood is good now. Affect is congruent and euthymic. [she] deny having any suicidal or homicidal ideation intent or plan. [she] denies any auditory or visual hallucinations. There is no evidence of any delusional thought content. [her] thought process is linear and goal-directed. [her] speech is fluent and nonpressured. [her] memory and concentration is grossly intact for the purposes of this session. Psychiatric impression:MS with multiple somatic complaints and psychiatric diagnosis of adjustment disorder with mixed emotions and feelings Psychiatric recommendations: when she is physically cleared she is able to go home she is is not a candidate for [facility] mental health unit. Recommended outpatient counseling for her. She was seen at bedside with her mother at bedside as well. Thank you for the consult Dung Andre DO PhD 12/21/18 15:47 Assessment and Plan Time with Patient: Less than 30
[2018-12-21 16:38] LABS: Glucose,Whole Blood 129 mg/dL (75-99)
[2018-12-22] MEDS: methylPREDNISolone SOD SUCCI 125 MG/2 ML VIAL IV SCH ×4 (06:25→23:17)
[2018-12-22] MEDS: LEVOTHYROXINE 112 MCG TAB PO SCH (06:25)
[2018-12-22] MEDS: PANTOPRAZOLE 40 MG TABLET PO SCH (06:25)
[2018-12-22] MEDS: SODIUM CHLORIDE 0.9% 1,000 ML IV SCH (06:25)
[2018-12-22] MEDS: IPRATROPIUM-ALBUTEROL 3 ML NEB INHALATION SCH ×4 (06:46→20:04)
[2018-12-22] MEDS: SYMBICORT 80-4.5 MCG INHALER INHALATION SCH ×2 (06:50→20:04)
[2018-12-22 08:13] LABS: ALT 76 U/L (9-52); AST 43 U/L (14-36); Albumin 3.1 g/dL (3.5-5.0); Alkaline Phosphatase 119 U/L (38-126); Anion Gap 5 mmol/L; Blood Urea Nitrogen 12 mg/dL (7-17); Calcium 8.4 mg/dL (8.4-10.2); Carbon Dioxide 25 mmol/L (22-30); Chloride 110 mmol/L (98-107); Glucose 103 mg/dL (74-99); Potassium 3.7 mmol/L (3.5-5.1); Sodium 140 mmol/L (137-145); Total Bilirubin 0.4 mg/dL (0.2-1.3); Total Protein 5.7 g/dL (6.3-8.2)
[2018-12-22 08:41] LABS: Basophils % (A) 0 %; Eosinophils % (A) 0 %; HCT 36.9 % (34.0-46.0); HGB 11.5 gm/dL (11.4-16.0); Lymphocytes # (A) 0.9 k/uL (1.0-4.8); Lymphocytes % (A) 8 %; MCH 28.4 pg (25.0-35.0); MCHC 31.1 g/dL (31.0-37.0); MCV 91.3 fL (80.0-100.0); Mean Platelet Volume 8.6; Monocytes # (A) 0.8 k/uL (0-1.0); Monocytes % (A) 6 %; Neutrophils # (A) 10.4 k/uL (1.3-7.7); Neutrophils % (A) 85 %; Platelet Count 209 k/uL (150-450); RBC 4.04 m/uL (3.80-5.40); RDW 14.1 % (11.5-15.5); WBC 12.2 k/uL (3.8-10.6)
[2018-12-22] MEDS: PRIMIDONE 50 MG TAB PO SCH ×3 (09:02→21:43)
[2018-12-22] MEDS: ENOXAPARIN 40 MG/0.4 ML SYRINGE SQ SCH (09:02)
[2018-12-22] MEDS: BACLOFEN 10 MG TAB PO SCH ×3 (09:02→21:43)
[2018-12-22] MEDS: AZITHROMYCIN 500 MG TAB PO SCH (09:02)
[2018-12-22] MEDS: NICOTINE 21MG/24HR PATCH TRANSDERM SCH (09:03)
[2018-12-22] MEDS: TROSPIUM CHLORIDE 20 MG TABLET PO SCH ×2 (09:03→21:43)
--- NOTE | 2018-12-22 09:23 | XR ---
EXAMINATION TYPE: XR chest 2V DATE OF EXAM: 12/22/2018 COMPARISON: 12/21/2018 HISTORY: Shortness of breath TECHNIQUE: Frontal and lateral views of the chest are obtained. FINDINGS: Scattered senescent parenchymal changes noted. Hyperinflation compatible with COPD. No evidence for infiltrate. No evidence for atelectasis. Heart size is stable. Mediastinal structures are stable and grossly unremarkable. No evidence for hilar prominence. Degenerative changes dorsal spine. IMPRESSION: 1. No evidence for acute pulmonary disease.
--- NOTE | 2018-12-22 14:08 | P.PN ---
Subjective Progress Note Date: 12/22/18 This is a 58-year-old female patient of Dr. Butt. Patient presented to the ER with complaints of increased shortness of breath. Patient reports that over the past 3 days she's been increasingly short of breath and increased weakness. Patient does have past medical history of asthma, 2 pack-a-day smoking history and MS in which she follows with Dr. Montano. Patient's troponin also slightly elevated, 0.099, 0.075 and 0.052. EKG completed showing normal sinus rhythm, septal infarct, age undetermined. Cardiology services have been consulted. Chest x-ray completed showing no acute process. started on Solu-Medrol IV and azithromycin for antibiotic. Per nursing staff during the night patient e xpressed suicidal ideation with the plan. Patient was placed on suicide precautions psychiatry services have been consulted. At this time patient doesn't state some improvement with shortness of breath. Patient does have a sitter and at bedside. This time patient denies chest pain. Patient denies nausea vomiting or diarrhea. Patient denies any urinary burning or frequency On 12/21/2018 patient is resting comfortably in bed. Patient does have sitter at bedside. Patient is still short of breath at this time. Patient remains on IV Solu-Medrol and DuoNeb breathing treatments. Patient currently on azithromycin for antibiotics. Patient is being followed by pulmonary and cardiology services. Patient also to be evaluated by by psychiatry On 12/22/2018 patient is alert and oriented 3 resting comfortably in bed. Patient was evaluated by psychiatry services and patient was taken out of suicide precautions and cleared by psychiatry. Patient having increased oxygen demand the same requiring 6 L nasal cannula. Did discuss with pulmonary care. Chest x-ray ordered. At this time patient denies chest pain. Patient is still complaining of shortness breath. Patient denies nausea vomiting or diarrhea. Patient denies any urinary burning or frequency Objective - Vital Signs Vital signs: Vital Signs Temp 98.5 F 12/22/18 08:00 Pulse 105 H 12/22/18 11:50 Resp 18 12/22/18 11:50 BP 131/80 12/22/18 08:00 Pulse Ox 89 L 12/22/18 08:00 Intake & Output 12/21/18 12/22/18 12/22/18 18:59 06:59 18:59 Intake Total 598 Output Total 1 Balance 598 -1 Weight 54.5 kg Intake: Oral 598 Output: Urine 1 Other: Voiding Method Incontinent Incontinent Incontinent # Voids 2 1 2 # Bowel Movements 1 - Exam Head normocephalic Neck supple Lungs diminished bilaterally with expiratory wheezing Heart regular rate and rhythm S1-S2, no rub or gallop Abdomen is soft nontender nondistended positive bowel sounds no hepatosplenomegaly Extremities no edema Neuro alert and orientated to 3 - Labs CBC & Chem 7: 12/22/18 07:36 12/22/18 07:36 Labs: Abnormal Lab Results - Last 24 Hours (Table) 12/21/18 12/22/18 12/22/18 Range/Units 16:33 07:36 07:36 WBC 12.2 H (3.8-10.6) k/uL Neutrophils # 10.4 H (1.3-7.7) k/uL Lymphocytes # 0.9 L (1.0-4.8) k/uL Chloride 110 H (98-107) mmol/L Creatinine 0.43 L (0.52-1.04) mg/dL Glucose 103 H (74-99) mg/dL POC Glucose (mg/dL) 129 H (75-99) mg/dL AST 43 H (14-36) U/L ALT 76 H (9-52) U/L Total Protein 5.7 L (6.3-8.2) g/dL Albumin 3.1 L (3.5-5.0) g/dL Assessment and Plan Assessment: 1. Shortness of breath with acute asthma exacerbation and acute exacerbation of chronic obstructive airway disease. Chest x-ray completed in ER showing no acute process. Patient has been started on Solu-Medrol 60 mg. Pulmonary services have been consulted. Patient started on azithromycin. Sputum culture ordered. Repeat chest x-ray completed showing COPD and trace effusions on the lateral view. On 12/22/2017 patient requiring 6 L oxygen. P chest x-ray has been ordered discussed with pulmonary care 2. Elevated troponins. Troponins 0.099, 0.075 0.052. 2-D echo completed showing an EF of 55-60%. Per cardiology services elevated troponin likely reflection of hypoxemia 3. Elevated liver enzymes. Initial AST 61, ALT 81 and alkaline phosphatase 176. Gallbladder ultrasound was completed showing no acute process. Liver enzymes are trending down. Statin currently on hold 4. Suicidal ideation. Patient expressed suicide plan to nursing staff throughout night. Patient maintained on suicide precautions. Patient was evaluated by psychiatry patient is not a candidate for [facility] patient to be discharged home when medically cleared and follow-up with out patient counseling. Patient no longer a threat to herself. Patient has been removed from suicide precautions per psychiatry. 5. Nicotine dependence. Patient reports she smokes 2 packs per day. Patient educated greater than 3 minutes on smoking cessation. Nicotine patch ordered 6. Multiple sclerosis. Home medications resumed. Patient reports she follows with Dr. Walsh for neurology services 7. Hypothyroidism. Patient's TSH level less than 0.015. Patient's Synthroid has been reduced 112 mcgs per cardiology DVT prophylaxis Lovenox. GI prophylaxis Protonix Patient maintained on suicide precautions. Pulmonary, cardiology and psychiatry services consulted Patient maintained on Solu-Medrol, DuoNeb breathing treatments and azithromycin I performed an examination of the patient and discussed their management with the Nurse Practitioner. I have reviewed the Nurse Practitioner's notes and agree with the documented findings and plan of care
--- NOTE | 2018-12-22 15:24 | P.PN ---
Progress Note - Text Progress Note Date: 12/22/18 CODE STATUS discussed with patient. At this time patient requesting to be a DO NOT RESUSCITATE. Patient understands that if her heart were stopped no CPR would be done. Patient verbalized understanding. Patient also understands that she would not be put on mechanical ventilation. Patient was evaluated by psychiatry services. Patient was deemed competent and not suicidal. At this time patient denies any suicidal ideations or ideas of self-harm. Patient is alert and oriented 3. Patient's and family at bedside in agreement. Patient has been made DO NOT RESUSCITATE
--- NOTE | 2018-12-22 15:30 | P.PN ---
Subjective Progress Note Date: 12/22/18 Principal diagnosis: Acute exacerbation of moderate persistent chronic bronchial asthma. Chest x-ray clear. This is a pleasant 58-year-old frail cachectic female patient who follows with Dr. Butt as her primary care physician. She has a history of chronic bronchial asthma, multiple sclerosis, chronic and ongoing tobacco dependence 2 packs per day, hyperlipidemia, hypothyroidism. She presented here to the emergency room on 12/19/2018 with complaints of increasing shortness of breath, weakness, dehydration. She's been unable to eat. She is extremely cachectic. Chest x-ray showed no acute pulmonary process. White count 5.5. Hemoglobin 10.8. Creatinine 0.45. Troponin 0.099, 0.075, 0.052. TSH less than 0.015. AST 37, ALT 65. The patient is seen today in consultation on the selective care unit. She is currently awake and alert in no acute distress. She is maintained on Breo and albuterol in the outpatient setting. She's been initiated on DuoNeb inhalations, Symbicort, IV Solu-Medrol. Antibiotics in the form of azithromycin. NicoDerm patch is in place. Her weight is 43 kg. She has expressed suicidal ideations to the nursing staff. A sitter is at the bedside. The patient is seen today 12/22/2017 in follow-up on the selective care unit. She is awake and alert in no acute distress. She is breathing easier today as compared to yesterday. She did however have low oxygen saturations in the a.m. and is now on 6 L nasal cannula. Chest x-ray shows no acute process still. She is afebrile. White count 12.2. Hemoglobin 11.5. Creatinine 0.43. She remains on bronchodilators, IV Solu-Medrol, empiric antibiotics in the form of azithromycin. She had been seen and evaluated by psychiatry who feels she is not a threat to herself and no suicide precautions needed. The patient has stated on multiple occasions she does not want to be intubated or have CPR performed. Objective - Vital Signs Vital signs: Vital Signs Temp 98.5 F 12/22/18 08:00 Pulse 104 H 12/22/18 12:00 Resp 20 12/22/18 12:00 BP 112/81 12/22/18 12:00 Pulse Ox 94 L 12/22/18 12:00 Intake & Output 12/21/18 12/22/18 12/22/18 18:59 06:59 18:59 Intake Total 598 240 Output Total 1 Balance 598 -1 240 Weight 54.5 kg Intake: Oral 598 240 Output: Urine 1 Other: Voiding Method Incontinent Incontinent Incontinent # Voids 2 1 1 # Bowel Movements 1 - Exam GENERAL EXAM: Frail, cachectic 58-year-old female. Alert, comfortable in no apparent distress. On 6 L nasal cannula HEAD: Normocephalic. EYES: Normal reaction of pupils, equal size. NOSE: Clear with pink turbinates. THROAT: No erythema or exudates. NECK: No masses, no JVD. CHEST: No chest wall deformity. LUNGS: Equal air entry with bilateral end expiratory wheeze. Diminished. CVS: S1 and S2 normal with no audible murmur, regular rhythm. ABDOMEN: No hepatosplenomegaly, normal bowel sounds, no guarding or rigidity. SPINE: No scoliosis or deformity SKIN: No rashes. Multiple tattoos. CENTRAL NERVOUS SYSTEM: No focal deficits, tone is normal in all 4 extremities. EXTREMITIES: There is no peripheral edema. No clubbing, no cyanosis. Peripheral pulses are intact. - Labs CBC & Chem 7: 12/22/18 07:36 12/22/18 07:36 Labs: Abnormal Lab Results - Last 24 Hours (Table) 12/21/18 12/22/18 12/22/18 Range/Units 16:33 07:36 07:36 WBC 12.2 H (3.8-10.6) k/uL Neutrophils # 10.4 H (1.3-7.7) k/uL Lymphocytes # 0.9 L (1.0-4.8) k/uL Chloride 110 H (98-107) mmol/L Creatinine 0.43 L (0.52-1.04) mg/dL Glucose 103 H (74-99) mg/dL POC Glucose (mg/dL) 129 H (75-99) mg/dL AST 43 H (14-36) U/L ALT 76 H (9-52) U/L Total Protein 5.7 L (6.3-8.2) g/dL Albumin 3.1 L (3.5-5.0) g/dL Assessment and Plan Assessment: Impression: #1 Acute exacerbation of moderate persistent chronic bronchial asthma. #2 Acute exacerbation of chronic obstructive pulmonary disease. #3 Chronic and ongoing tobacco dependence at 2 packs per day. #4 Multiple sclerosis, advanced with progressive weight loss and cachexia. Current weight 43 kg. #5 Hypothyroidism. #6 Hyperlipidemia. #7 Suicidal ideations. Plan: The patient was seen and evaluated by Dr. Winston. She did require more FiO2 currently at 6 L. No pulmonary complaints. Chest x-ray is clear today. We'll continue with her current treatment plan including DuoNeb inhalations, Symbicort, IV solu Medrol. Empiric antibiotics in the form of azithromycin. She is educated regarding the importance of complete smoking cessation. NicoDerm patch is in place. She is a DO NOT RESUSCITATE/DO NOT INTUBATE CODE STATUS We will continue to follow make further recommendations based on her clinical status. I, the cosigning physician, performed a history & physical examination of the patient. Lungs sounds with end expiratory wheeze, diminished. Maintaining good O2 saturations in the 90s on 6 L/m per nasal cannula. I discussed the assessment and plan of care with my nurse practitioner, Leonora Gibbs. I attest to the above note as dictated by her.
[2018-12-23 06:03] LABS: Glucose,Whole Blood 123 mg/dL (75-99)
[2018-12-23] MEDS: LEVOTHYROXINE 112 MCG TAB PO SCH (06:08)
[2018-12-23] MEDS: PANTOPRAZOLE 40 MG TABLET PO SCH (06:08)
[2018-12-23] MEDS: methylPREDNISolone SOD SUCCI 125 MG/2 ML VIAL IV SCH ×3 (06:09→17:24)
[2018-12-23 06:36] LABS: Basophils % (A) 0 %; Eosinophils % (A) 0 %; HCT 33.4 % (34.0-46.0); Lymphocytes # (A) 1.1 k/uL (1.0-4.8); Lymphocytes % (A) 13 %; MCH 28.7 pg (25.0-35.0); MCV 86.9 fL (80.0-100.0); Mean Platelet Volume 8.8; Monocytes # (A) 0.5 k/uL (0-1.0); Monocytes % (A) 6 %; Neutrophils # (A) 6.7 k/uL (1.3-7.7); Neutrophils % (A) 79 %; Platelet Count 207 k/uL (150-450); RBC 3.84 m/uL (3.80-5.40); RDW 13.9 % (11.5-15.5); WBC 8.5 k/uL (3.8-10.6)
[2018-12-23 06:46] LABS: ALT 90 U/L (9-52); AST 53 U/L (14-36); Albumin 2.9 g/dL (3.5-5.0); Alkaline Phosphatase 108 U/L (38-126); Anion Gap 5 mmol/L; Blood Urea Nitrogen 15 mg/dL (7-17); Calcium 8.3 mg/dL (8.4-10.2); Carbon Dioxide 27 mmol/L (22-30); Chloride 107 mmol/L (98-107); Glucose 109 mg/dL (74-99); Potassium 3.9 mmol/L (3.5-5.1); Sodium 139 mmol/L (137-145); Total Bilirubin 0.5 mg/dL (0.2-1.3); Total Protein 5.3 g/dL (6.3-8.2)
[2018-12-23] MEDS: NICOTINE 21MG/24HR PATCH TRANSDERM SCH (08:57)
[2018-12-23] MEDS: AZITHROMYCIN 500 MG TAB PO SCH (08:58)
[2018-12-23] MEDS: TROSPIUM CHLORIDE 20 MG TABLET PO SCH ×2 (08:58→21:31)
[2018-12-23] MEDS: BACLOFEN 10 MG TAB PO SCH ×3 (08:58→21:31)
[2018-12-23] MEDS: PRIMIDONE 50 MG TAB PO SCH ×3 (08:58→21:31)
[2018-12-23] MEDS: ENOXAPARIN 40 MG/0.4 ML SYRINGE SQ SCH (08:59)
[2018-12-23] MEDS: IPRATROPIUM-ALBUTEROL 3 ML NEB INHALATION SCH ×4 (09:48→20:10)
[2018-12-23] MEDS: SYMBICORT 80-4.5 MCG INHALER INHALATION SCH ×2 (09:49→20:10)
--- NOTE | 2018-12-23 10:22 | P.PN ---
Subjective Progress Note Date: 12/23/18 This is a 58-year-old female patient of Dr. Butt. Patient presented to the ER with complaints of increased shortness of breath. Patient reports that over the past 3 days she's been increasingly short of breath and increased weakness. Patient does have past medical history of asthma, 2 pack-a-day smoking history and MS in which she follows with Dr. Montano. Patient's troponin also slightly elevated, 0.099, 0.075 and 0.052. EKG completed showing normal sinus rhythm, septal infarct, age undetermined. Cardiology services have been consulted. Chest x-ray completed showing no acute process. started on Solu-Medrol IV and azithromycin for antibiotic. Per nursing staff during the night patient e xpressed suicidal ideation with the plan. Patient was placed on suicide precautions psychiatry services have been consulted. At this time patient doesn't state some improvement with shortness of breath. Patient does have a sitter and at bedside. This time patient denies chest pain. Patient denies nausea vomiting or diarrhea. Patient denies any urinary burning or frequency On 12/21/2018 patient is resting comfortably in bed. Patient does have sitter at bedside. Patient is still short of breath at this time. Patient remains on IV Solu-Medrol and DuoNeb breathing treatments. Patient currently on azithromycin for antibiotics. Patient is being followed by pulmonary and cardiology services. Patient also to be evaluated by by psychiatry On 12/22/2018 patient is alert and oriented 3 resting comfortably in bed. Patient was evaluated by psychiatry services and patient was taken out of suicide precautions and cleared by psychiatry. Patient having increased oxygen demand the same requiring 6 L nasal cannula. Did discuss with pulmonary care. Chest x-ray ordered. At this time patient denies chest pain. Patient is still complaining of shortness breath. Patient denies nausea vomiting or diarrhea. Patient denies any urinary burning or frequency On 12/23/2018 patient is alert and oriented 3 resting comfortably in bed. Patient's oxygen has been decreased to 3 L nasal cannula. Patient states she feels slightly better today. At this time patient denies chest pain or shortness breath. Patient denies nausea vomiting or diarrhea. Patient denies any urinary burning or frequency Objective - Vital Signs Vital signs: Vital Signs Temp 98.0 F 12/23/18 07:49 Pulse 92 12/23/18 10:00 Resp 16 12/23/18 07:49 BP 131/83 12/23/18 07:49 Pulse Ox 98 12/23/18 07:49 Intake & Output 12/22/18 12/23/18 12/23/18 18:59 06:59 18:59 Intake Total 660 10 100 Output Total 1 Balance 660 9 100 Weight 42 kg Intake: IV 10 0.9 10 Oral 660 100 Output: Urine 1 Other: Voiding Method Incontinent Incontinent Incontinent # Voids 1 1 - Exam Head normocephalic Neck supple Lungs diminished bilaterally with expiratory wheezing Heart regular rate and rhythm S1-S2, no rub or gallop Abdomen is soft nontender nondistended positive bowel sounds no hepatosplenomegaly Extremities no edema Neuro alert and orientated to 3 - Labs CBC & Chem 7: 12/23/18 06:19 12/23/18 06:19 Labs: Abnormal Lab Results - Last 24 Hours (Table) 12/23/18 12/23/18 12/23/18 Range/Units 06:01 06:19 06:19 Hgb 11.0 L (11.4-16.0) gm/dL Hct 33.4 L (34.0-46.0) % Creatinine 0.49 L (0.52-1.04) mg/dL Glucose 109 H (74-99) mg/dL POC Glucose (mg/dL) 123 H (75-99) mg/dL Calcium 8.3 L (8.4-10.2) mg/dL AST 53 H (14-36) U/L ALT 90 H (9-52) U/L Total Protein 5.3 L (6.3-8.2) g/dL Albumin 2.9 L (3.5-5.0) g/dL Assessment and Plan Assessment: 1. Shortness of breath with acute asthma exacerbation and acute exacerbation of chronic obstructive airway disease. Chest x-ray completed in ER showing no acute process. Patient has been started on Solu-Medrol 60 mg. Pulmonary services have been consulted. Patient started on azithromycin. Sputum culture ordered. Repeat chest x-ray completed showing COPD and trace effusions on the lateral view. Oxygen is decreasing to 3 L. Repeat chest x-ray reviewed per pulmonary services. She currently maintained on azithromycin, Solu-Medrol and DuoNeb breathing treatments 2. Elevated troponins. Troponins 0.099, 0.075 0.052. 2-D echo completed showing an EF of 55-60%. Per cardiology services elevated troponin likely reflection of hypoxemia 3. Elevated liver enzymes. Initial AST 61, ALT 81 and alkaline phosphatase 176. Gallbladder ultrasound was completed showing no acute process. Liver enzymes are trending down. Statin currently on hold 4. Suicidal ideation. Patient expressed suicide plan to nursing staff throughout night. Patient maintained on suicide precautions. Patient was evaluated by psychiatry patient is not a candidate for [facility] unit patient to be discharged home when medically cleared and follow-up with outpatient counseling. Patient no longer a threat to herself. Patient has been removed from suicide precautions per psychiatry. 5. Nicotine dependence. Patient reports she smokes 2 packs per day. Patient educated greater than 3 minutes on smoking cessation. Nicotine patch ordered 6. Multiple sclerosis. Home medications resumed. Patient reports she follows with Dr. Walsh for neurology services 7. Hypothyroidism. Patient's TSH level less than 0.015. Patient's Synthroid has been reduced 112 mcgs per cardiology DVT prophylaxis Lovenox. GI prophylaxis Protonix Patient maintained on suicide precautions. Pulmonary, cardiology and psychiatry services consulted Patient maintained on Solu-Medrol, DuoNeb breathing treatments and azithromycin I performed an examination of the patient and discussed their management with the Nurse Practitioner. I have reviewed the Nurse Practitioner's notes and agree with the documented findings and plan of care
[2018-12-23 12:25] VITALS: BMI 14.1
--- NOTE | 2018-12-23 14:25 | P.PN ---
Subjective Progress Note Date: 12/23/18 Principal diagnosis: Acute exacerbation of moderate persistent chronic bronchial asthma. Chest x-ray clear. This is a pleasant 58-year-old frail cachectic female patient who follows with Dr. Butt as her primary care physician. She has a history of chronic bronchial asthma, multiple sclerosis, chronic and ongoing tobacco dependence 2 packs per day, hyperlipidemia, hypothyroidism. She presented here to the emergency room on 12/19/2018 with complaints of increasing shortness of breath, weakness, dehydration. She's been unable to eat. She is extremely cachectic. Chest x-ray showed no acute pulmonary process. White count 5.5. Hemoglobin 10.8. Creatinine 0.45. Troponin 0.099, 0.075, 0.052. TSH less than 0.015. AST 37, ALT 65. The patient is seen today in consultation on the selective care unit. She is currently awake and alert in no acute distress. She is maintained on Breo and albuterol in the outpatient setting. She's been initiated on DuoNeb inhalations, Symbicort, IV Solu-Medrol. Antibiotics in the form of azithromycin. NicoDerm patch is in place. Her weight is 43 kg. She has expressed suicidal ideations to the nursing staff. A sitter is at the bedside. The patient is seen today 12/22/2017 in follow-up on the selective care unit. She is awake and alert in no acute distress. She is breathing easier today as compared to yesterday. She did however have low oxygen saturations in the a.m. and is now on 6 L nasal cannula. Chest x-ray shows no acute process still. She is afebrile. White count 12.2. Hemoglobin 11.5. Creatinine 0.43. She remains on bronchodilators, IV Solu-Medrol, empiric antibiotics in the form of azithromycin. She had been seen and evaluated by psychiatry who feels she is not a threat to herself and no suicide precautions needed. The patient has stated on multiple occasions she does not want to be intubated or have CPR performed. The patient is seen today 12/23/2018 in follow-up on the selective care unit. She is currently resting quite comfortably in bed. Remains awake and alert in no acute distress. Breathing easier today as compared to yesterday. Currently maintaining good O2 saturations in the mid 90s on room air. She's afebrile. Hemodynamically stable. White count 8.5. Hemoglobin 11.0. Creatinine 0.49. She remains on Symbicort, DuoNeb inhalations and IV Solu-Medrol, azithromycin. NicoDerm patches in place. Objective - Vital Signs Vital signs: Vital Signs Temp 98.1 F 12/23/18 12:00 Pulse 96 12/23/18 13:01 Resp 16 12/23/18 12:00 BP 118/79 12/23/18 12:00 Pulse Ox 95 12/23/18 12:00 Intake & Output 12/22/18 12/23/18 12/23/18 18:59 06:59 18:59 Intake Total 660 10 850 Output Total 1 Balance 660 9 850 Weight 42 kg 42 kg Intake: IV 10 0.9 10 Intake, IV Titration 500 Amount Sodium Chloride 0.9% 1, 500 000 ml @ 100 mls/hr IV . Q10H KATIE Rx#:[id number] Oral 660 350 Output: Urine 1 Other: Voiding Method Incontinent Incontinent Incontinent # Voids 1 1 1 - Exam GENERAL EXAM: Frail, cachectic 58-year-old female. Alert, comfortable in no apparent distress. On room air. HEAD: Normocephalic. EYES: Normal reaction of pupils, equal size. NOSE: Clear with pink turbinates. THROAT: No erythema or exudates. NECK: No masses, no JVD. CHEST: No chest wall deformity. LUNGS: Equal air entry with bilateral end expiratory wheeze. Diminished. CVS: S1 and S2 normal with no audible murmur, regular rhythm. ABDOMEN: No hepatosplenomegaly, normal bowel sounds, no guarding or rigidity. SPINE: No scoliosis or deformity SKIN: No rashes. Multiple tattoos. CENTRAL NERVOUS SYSTEM: No focal deficits, tone is normal in all 4 extremities. EXTREMITIES: There is no peripheral edema. No clubbing, no cyanosis. Peripheral pulses are intact. - Labs CBC & Chem 7: 12/23/18 06:19 12/23/18 06:19 Labs: Abnormal Lab Results - Last 24 Hours (Table) 12/23/18 12/23/18 12/23/18 Range/Units 06:01 06:19 06:19 Hgb 11.0 L (11.4-16.0) gm/dL Hct 33.4 L (34.0-46.0) % Creatinine 0.49 L (0.52-1.04) mg/dL Glucose 109 H (74-99) mg/dL POC Glucose (mg/dL) 123 H (75-99) mg/dL Calcium 8.3 L (8.4-10.2) mg/dL AST 53 H (14-36) U/L ALT 90 H (9-52) U/L Total Protein 5.3 L (6.3-8.2) g/dL Albumin 2.9 L (3.5-5.0) g/dL Assessment and Plan Assessment: Impression: #1 Acute exacerbation of moderate persistent chronic bronchial asthma. Recovered. #2 Acute exacerbation of chronic obstructive pulmonary disease. #3 Chronic and ongoing tobacco dependence at 2 packs per day. #4 Multiple sclerosis, advanced with progressive weight loss and cachexia. Current weight 43 kg. #5 Hypothyroidism. #6 Hyperlipidemia. #7 Suicidal ideations. Plan: The patient was seen and evaluated by Dr. Winston. Currently on room air. No pulmonary complaints. Chest x-ray is clear. We'll continue with her current treatment plan including DuoNeb inhalations, Symbicort, IV solu Medrol. Empiric antibiotics in the form of azithromycin. She is educated regarding the importance of complete smoking cessation. NicoDerm patch is in place. She is a DO NOT RESUSCITATE/DO NOT INTUBATE CODE STATUS We will continue to follow make further recommendations based on her clinical status. Probable home in the a.m. I, the cosigning physician, performed a history & physical examination of the patient. Lungs sounds with end expiratory wheeze, diminished. Maintaining good O2 saturations in the 90s on room air. I discussed the assessment and plan of care with my nurse practitioner, Leonora Gibbs. I attest to the above note as dictated by her.
[2018-12-23 21:47] LABS: Glucose,Whole Blood 119 mg/dL (75-99)
[2018-12-24] MEDS: methylPREDNISolone SOD SUCCI 125 MG/2 ML VIAL IV SCH ×2 (00:24→06:28)
[2018-12-24 06:08] LABS: Glucose,Whole Blood 127 mg/dL (75-99)
[2018-12-24] MEDS: LEVOTHYROXINE 112 MCG TAB PO SCH (06:27)
[2018-12-24] MEDS: PANTOPRAZOLE 40 MG TABLET PO SCH (06:30)
[2018-12-24 07:56] LABS: Basophils % (A) 0 %; Eosinophils # (A) 0.1 k/uL (0-0.7); Eosinophils % (A) 1 %; HCT 35.7 % (34.0-46.0); HGB 11.6 gm/dL (11.4-16.0); Lymphocytes # (A) 1.2 k/uL (1.0-4.8); Lymphocytes % (A) 12 %; MCH 28.5 pg (25.0-35.0); MCHC 32.4 g/dL (31.0-37.0); MCV 87.9 fL (80.0-100.0); Mean Platelet Volume 8.7; Monocytes # (A) 0.3 k/uL (0-1.0); Monocytes % (A) 4 %; Neutrophils # (A) 7.7 k/uL (1.3-7.7); Neutrophils % (A) 82 %; Platelet Count 231 k/uL (150-450); RBC 4.06 m/uL (3.80-5.40); RDW 14.5 % (11.5-15.5); WBC 9.4 k/uL (3.8-10.6)
[2018-12-24 08:15] LABS: ALT 86 U/L (9-52); AST 33 U/L (14-36); Albumin 2.8 g/dL (3.5-5.0); Alkaline Phosphatase 104 U/L (38-126); Anion Gap 6 mmol/L; Blood Urea Nitrogen 19 mg/dL (7-17); Calcium 8.4 mg/dL (8.4-10.2); Carbon Dioxide 27 mmol/L (22-30); Chloride 106 mmol/L (98-107); Glucose 109 mg/dL (74-99); Potassium 4.3 mmol/L (3.5-5.1); Sodium 139 mmol/L (137-145); Total Bilirubin 0.6 mg/dL (0.2-1.3); Total Protein 5.4 g/dL (6.3-8.2)
[2018-12-24] MEDS: TROSPIUM CHLORIDE 20 MG TABLET PO SCH (08:55)
[2018-12-24] MEDS: ENOXAPARIN 40 MG/0.4 ML SYRINGE SQ SCH (08:55)
[2018-12-24] MEDS: AZITHROMYCIN 500 MG TAB PO SCH (08:55)
[2018-12-24] MEDS: BACLOFEN 10 MG TAB PO SCH (08:55)
[2018-12-24] MEDS: PRIMIDONE 50 MG TAB PO SCH (08:59)
[2018-12-24] MEDS: IPRATROPIUM-ALBUTEROL 3 ML NEB INHALATION SCH ×3 (09:25→16:10)
[2018-12-24] MEDS: SYMBICORT 80-4.5 MCG INHALER INHALATION SCH (09:25)
[2018-12-24 10:04] VITALS: TEMP 97.7
[2018-12-24 11:29] LABS: Hepatitis A Antibody IgM Non-Reactive (Non-Reactive); Hepatitis B Core IgM Non-Reactive (Non-Reactive)
[2018-12-24 11:43] LABS: Glucose,Whole Blood 136 mg/dL (75-99)
--- NOTE | 2018-12-24 12:15 | P.PN ---
Subjective Progress Note Date: 12/24/18 Principal diagnosis: Acute exacerbation of moderate persistent chronic bronchial asthma. Chest x-ray clear. This is a pleasant 58-year-old frail cachectic female patient who follows with Dr. Butt as her primary care physician. She has a history of chronic bronchial asthma, multiple sclerosis, chronic and ongoing tobacco dependence 2 packs per day, hyperlipidemia, hypothyroidism. She presented here to the emergency room on 12/19/2018 with complaints of increasing shortness of breath, weakness, dehydration. She's been unable to eat. She is extremely cachectic. Chest x-ray showed no acute pulmonary process. White count 5.5. Hemoglobin 10.8. Creatinine 0.45. Troponin 0.099, 0.075, 0.052. TSH less than 0.015. AST 37, ALT 65. The patient is seen today in consultation on the selective care unit. She is currently awake and alert in no acute distress. She is maintained on Breo and albuterol in the outpatient setting. She's been initiated on DuoNeb inhalations, Symbicort, IV Solu-Medrol. Antibiotics in the form of azithromycin. NicoDerm patch is in place. Her weight is 43 kg. She has expressed suicidal ideations to the nursing staff. A sitter is at the bedside. The patient is seen today 12/22/2017 in follow-up on the selective care unit. She is awake and alert in no acute distress. She is breathing easier today as compared to yesterday. She did however have low oxygen saturations in the a.m. and is now on 6 L nasal cannula. Chest x-ray shows no acute process still. She is afebrile. White count 12.2. Hemoglobin 11.5. Creatinine 0.43. She remains on bronchodilators, IV Solu-Medrol, empiric antibiotics in the form of azithromycin. She had been seen and evaluated by psychiatry who feels she is not a threat to herself and no suicide precautions needed. The patient has stated on multiple occasions she does not want to be intubated or have CPR performed. The patient is seen today 12/23/2018 in follow-up on the selective care unit. She is currently resting quite comfortably in bed. Remains awake and alert in no acute distress. Breathing easier today as compared to yesterday. Currently maintaining good O2 saturations in the mid 90s on room air. She's afebrile. Hemodynamically stable. White count 8.5. Hemoglobin 11.0. Creatinine 0.49. She remains on Symbicort, DuoNeb inhalations and IV Solu-Medrol, azithromycin. NicoDerm patches in place. Patient seen today 12/24/2017 in follow-up on the selective care unit. She remains awake and alert in no acute distress. She is maintaining good O2 saturations in the 90s on room air. She denies any worsening shortness of breath, cough or congestion. White count 9.4. Hemoglobin 11.6. Creatinine 0.50. Hepatitis screen nonreactive. Objective - Vital Signs Vital signs: Vital Signs Temp 97.7 F 12/24/18 08:00 Pulse 88 12/24/18 12:03 Resp 16 12/24/18 08:00 BP 128/88 12/24/18 08:00 Pulse Ox 94 L 12/24/18 08:00 Intake & Output 12/23/18 12/24/18 12/24/18 18:59 06:59 18:59 Intake Total 968 270 Balance 968 270 Weight 42 kg 34 kg Intake: IV 20 0.9 20 Intake, IV Titration 500 Amount Sodium Chloride 0.9% 1, 500 000 ml @ 100 mls/hr IV . Q10H KATIE Rx#:[id number] Oral 468 250 Other: Voiding Method Diaper Incontinent Diaper Incontinent # Voids 1 1 - Exam GENERAL EXAM: Frail, cachectic 58-year-old female. Alert, comfortable in no apparent distress. On room air. HEAD: Normocephalic. EYES: Normal reaction of pupils, equal size. NOSE: Clear with pink turbinates. THROAT: No erythema or exudates. NECK: No masses, no JVD. CHEST: No chest wall deformity. LUNGS: Equal air entry with bilateral end expiratory wheeze. Diminished. CVS: S1 and S2 normal with no audible murmur, regular rhythm. ABDOMEN: No hepatosplenomegaly, normal bowel sounds, no guarding or rigidity. SPINE: No scoliosis or deformity SKIN: No rashes. Multiple tattoos. CENTRAL NERVOUS SYSTEM: No focal deficits, tone is normal in all 4 extremities. EXTREMITIES: There is no peripheral edema. No clubbing, no cyanosis. Peripheral pulses are intact. - Labs CBC & Chem 7: 12/24/18 07:25 12/24/18 07:25 Labs: Abnormal Lab Results - Last 24 Hours (Table) 12/23/18 12/24/18 12/24/18 Range/Units 21:47 06:06 07:25 BUN 19 H (7-17) mg/dL Creatinine 0.50 L (0.52-1.04) mg/dL Glucose 109 H (74-99) mg/dL POC Glucose (mg/dL) 119 H 127 H (75-99) mg/dL ALT 86 H (9-52) U/L Total Protein 5.4 L (6.3-8.2) g/dL Albumin 2.8 L (3.5-5.0) g/dL 12/24/18 Range/Units 11:15 BUN (7-17) mg/dL Creatinine (0.52-1.04) mg/dL Glucose (74-99) mg/dL POC Glucose (mg/dL) 136 H (75-99) mg/dL ALT (9-52) U/L Total Protein (6.3-8.2) g/dL Albumin (3.5-5.0) g/dL Assessment and Plan Assessment: Impression: #1 Acute exacerbation of moderate persistent chronic bronchial asthma. Recovered. #2 Acute exacerbation of chronic obstructive pulmonary disease. #3 Chronic and ongoing tobacco dependence at 2 packs per day. #4 Multiple sclerosis, advanced with progressive weight loss and cachexia. Cur rent weight 43 kg. #5 Hypothyroidism. #6 Hyperlipidemia. #7 Suicidal ideations. Plan: The patient was seen and evaluated by Dr. Winston. She is cleared for discharge from the pulmonary standpoint. Currently on room air. No pulmonary complaints. Chest x-ray is clear. We'll discontinue the IV Solu-Medrol and switch her to oral prednisone burst and taper starting at 40 mg daily for 4 days. She could continue Symbicort and DuoNeb inhalations. She is educated regarding the importance of complete smoking cessation. NicoDerm patch is in place. I, the cosigning physician, performed a history & physical examination of the patient. Lungs sounds clear, diminished. Maintaining good O2 saturations in the 90s on room air. I discussed the assessment and plan of care with my nurse practitioner, Leonora Gibbs. I attest to the above note as dictated by her.
--- NOTE | 2018-12-24 14:40 | P.DS ---
Providers Date of admission: 12/19/18 19:19 Expected date of discharge: 12/24/18 Attending physician: Audrey Jessica Consults: 12/19/18 21:29 Consult Physician Routine Consulting Provider: Mary Werner Consult Reason/Comments: Elevated troponin Do you want consulting provider notified?: Yes 12/19/18 22:49 Consult Physician Routine Consulting Provider: Dung Andre Consult Reason/Comments: suicidal thought with aplan Do you want consulting provider notified?: Yes 12/20/18 09:56 Consult Physician Routine Consulting Provider: Art Winston Consult Reason/Comments: COPD exacerbation Do you want consulting provider notified?: Yes Primary care physician: Joanna Butt [place] Hospital Course: Diagnosis on discharge: 1. Shortness of breath with acute asthma exacerbation and acute exacerbation of chronic obstructive airway disease. Chest x-ray completed in ER showing no acute process. Patient has been started on Solu-Medrol 60 mg. Pulmonary services have been consulted. Patient started on azithromycin. Sputum culture ordered. Repeat chest x-ray completed showing COPD and trace effusions on the lateral view. Oxygen is decreasing to 3 L. Repeat chest x-ray reviewed per pulmonary services. She currently maintained on azithromycin, Solu-Medrol and DuoNeb breathing treatments 2. Elevated troponins. Troponins 0.099, 0.075 0.052. 2-D echo completed showing an EF of 55-60%. Per cardiology services elevated troponin likely reflection of hypoxemia 3. Elevated liver enzymes. Initial AST 61, ALT 81 and alkaline phosphatase 176. Gallbladder ultrasound was completed showing no acute process. Liver enzymes are trending down. Statin currently on hold 4. Suicidal ideation. Patient expressed suicide plan to nursing staff throughout night. Patient maintained on suicide precautions. Patient was evaluated by psychiatry patient is not a candidate for 3 [facility] mental health unit patient to be discharged home when medically cleared and follow-up with outpatient counseling. Patient no longer a threat to herself. Patient has been removed from suicide precautions per psychiatry. 5. Nicotine dependence. Patient reports she smokes 2 packs per day. Patient educated greater than 3 minutes on smoking cessation. Nicotine patch ordered 6. Multiple sclerosis. Home medications resumed. Patient reports she follows with Dr. Walsh for neurology services 7. Hypothyroidism. Patient's TSH level less than 0.015. Patient's Synthroid has been reduced 112 mcgs per cardiology. Hospital course: This is a 58-year-old female patient of Dr. Butt. Patient presented to the ER with complaints of increased shortness of breath. Patient reports that over the past 3 days she's been increasingly short of breath and increased weakness. Patient does have past medical history of asthma, 2 pack-a-day smoking history and MS in which she follows with Dr. Montano. Patient's troponin also slightly elevated, 0.099, 0.075 and 0.052. EKG completed showing normal sinus rhythm, septal infarct, age undetermined. Cardiology services have been consulted. Chest x-ray completed showing no acute process. started on Solu-Medrol IV and azithromycin for antibiotic. Per nursing staff during the night patient expressed suicidal ideation with the plan. Patient was placed on suicide precautions psychiatry services have been consulted. At this time patient doesn't state some improvement with shortness of breath. Patient does have a sitter and at bedside. This time patient denies chest pain. Patient denies nausea vomiting or diarrhea. Patient denies any urinary burning or frequency On 12/21/2018 patient is resting comfortably in bed. Patient does have sitter at bedside. Patient is still short of breath at this time. Patient remains on IV Solu-Medrol and DuoNeb breathing treatments. Patient currently on azithromycin for antibiotics. Patient is being followed by pulmonary and cardiology services. Patient also to be evaluated by by psychiatry On 12/22/2018 patient is alert and oriented 3 resting comfortably in bed. Patient was evaluated by psychiatry services and patient was taken out of suicide precautions and cleared by psychiatry. Patient having increased oxygen demand the same requiring 6 L nasal cannula. Did discuss with pulmonary care. Chest x-ray ordered. At this time patient denies chest pain. Patient is still complaining of shortness breath. Patient denies nausea vomiting or diarrhea. Patient denies any urinary burning or frequency On 12/23/2018 patient is alert and oriented 3 resting comfortably in bed. Patient's oxygen has been decreased to 3 L nasal cannula. Patient states she feels slightly better today. At this time patient denies chest pain or shortness breath. Patient denies nausea vomiting or diarrhea. Patient denies any urinary burning or frequency , On 12/24/2018 patient is alert and oriented 3 she is feeling better, there is no fever or chills no headache or dizziness no chest pain no shortness of breath no cough no nausea or vomiting no abdominal pain no diarrhea and no urinary symptoms she was evaluated by pulmonary Dr. Winston and was cleared for discharge. Patient will be discharged home today she will be continued on oral Zithromax she will also be continued on prednisone 40 mg daily with tapering down dose she will also be continued on updraft treatment prescription for nebulizer and the DuoNeb updraft medication were provided she was also given prescription for Zithromax and prednisone. Patient was counseled in length more than 10 minutes during this admission in regard to smoking cessation she was given a prescription for NicoDerm patches at the time of discharge. Patient should follow-up with her primary care physician Dr. Joanna Butt within 1 week. Patient Condition at Discharge: Undetermined Plan - Discharge Summary New Discharge Prescriptions: New Ipratropium-Albuterol Nebulize [Duoneb 0.5 mg-3 mg/3 ml Soln] 3 ml INHALATION RT-QID ampul.neb Nicotine 21Mg/24Hr Patch [Habitrol] 1 patch TRANSDERM DAILY patch predniSONE 40 mg PO DAILY tab Levothyroxine Sodium [Synthroid] 112 mcg PO DAILY@0630 tab Azithromycin [Zithromax] 500 mg PO DAILY tab Continue Fluticasone/Vilanterol [Breo Ellipta 100-25 Mcg Inhaler] 1 puff INHALATION RT-DAILY Fesoterodine Fumarate [Toviaz] 8 mg PO DAILY Alendronate Sodium [Fosamax] 70 mg PO Q7D Teriflunomide [Aubagio] 14 mg PO DAILY Primidone [Mysoline] 50 mg PO TID Baclofen [Lioresal] 20 mg PO TID Discontinued Simvastatin [Zocor] 20 mg PO DAILY Levothyroxine Sodium 150 mcg PO DAILY Tension Headache (Unknown) 1 tab PO Q4-6H Tiffany Back And Body (Unknown) 1 tab PO Q8HR PRN PRN Reason: Pain Discharge Medication List Alendronate Sodium [Fosamax] 70 mg PO Q7D 12/19/18 [History] Baclofen [Lioresal] 20 mg PO TID 12/19/18 [History] Fesoterodine Fumarate [Toviaz] 8 mg PO DAILY 12/19/18 [History] Fluticasone/Vilanterol [Breo Ellipta 100-25 Mcg Inhaler] 1 puff INHALATION RT- DAILY 12/19/18 [History] Primidone [Mysoline] 50 mg PO TID 12/19/18 [History] Teriflunomide [Aubagio] 14 mg PO DAILY 12/19/18 [History] Azithromycin [Zithromax] 500 mg PO DAILY tab 12/24/18 [Rx] Ipratropium-Albuterol Nebulize [Duoneb 0.5 mg-3 mg/3 ml Soln] 3 ml INHALATION RT-QID ampul.neb 12/24/18 [Rx] Levothyroxine Sodium [Synthroid] 112 mcg PO DAILY@0630 tab 12/24/18 [Rx] Nicotine 21Mg/24Hr Patch [Habitrol] 1 patch TRANSDERM DAILY patch 12/24/18 [Rx] predniSONE 40 mg PO DAILY tab 12/24/18 [Rx] Follow up Appointment(s)/Referral(s): Psychiatry - [facility] [Provider Group] - As Needed (Outpatient counceling.) Art Winston MD [STAFF PHYSICIAN] - 1 Week [facility], [NON-STAFF] - Joanna Butt DO [Primary Care Provider] - 1-2 days Patient Instructions/Handouts: How to Stop Smoking (DC), Chronic Lung Disease and Infection Prevention (DC)
[2018-12-24 16:13] VITALS: RESP 16
[2018-12-24 16:35] VITALS: BP 129/90; PULSE 98
[2018-12-25] MEDS ORDERED: predniSONE 20 MG TAB PO SCH (09:00)
== END 2018-12-24 18:30 | disposition home or self-care (01) | DRG 202 ==
LOC: EC 17:29 → 3SCARD 19:19 → 3NMEDONC 20:04 → 3SCARD 20:04
PROVIDERS: ADMIT Internal Medicine; ATTEND Internal Medicine
DX: J45.41 Moderate persistent asthma with (acute) exacerbation (principal); J44.1 Chronic obstructive pulmonary disease with (acute) exacerbation; R45.851 Suicidal ideations; R64 Cachexia; E03.9 Hypothyroidism, unspecified; E78.5 Hyperlipidemia, unspecified; E86.0 Dehydration; F17.210 Nicotine dependence, cigarettes, uncomplicated; F41.9 Anxiety disorder, unspecified; G35 Multiple sclerosis; R09.02 Hypoxemia; R74.8 Abnormal levels of other serum enzymes; R77.9 Abnormality of plasma protein, unspecified; R32 Unspecified urinary incontinence; Z66 Do not resuscitate; Z79.890 Hormone replacement therapy; Z79.899 Other long term (current) drug therapy; Z79.83 Long term (current) use of bisphosphonates
CPT/HCPCS: 36415; 71045; 71046; 76705; 80053; 80074; 80320; 83735; 83880; 84439; 84443; 84484; 85025; 85610; 85730; 93005; 93306; 94640; 94760; 96361; 96374; 96375; 99285

== ENCOUNTER 2019-03-31 17:53 | Emergency (ER) | payer MEDICARE ==
[2019-03-31 18:25] VITALS: RESP 18
[2019-03-31] MEDS ORDERED: SODIUM CHLORIDE 0.9% 500 ML 500 ML IV STA (18:34)
--- NOTE | 2019-03-31 18:39 | ED ---
General Adult HPI - General Chief complaint: Fever Stated complaint: Fever Time Seen by Provider: 03/31/19 18:27 Source: patient, family, RN notes reviewed, old records reviewed Mode of arrival: wheelchair Limitations: physical limitation - History of Present Illness Initial comments: 58-year-old female history of asthma and MS presenting for evaluation of fever. Patient's states that at home she had fever of 100.7. He brought the patient in for evaluation. She's had no cough, no dyspnea, no URI symptoms, no nasal congestion or sore throat. No rash. No abdominal pain. No vomiting or diarrhea. No dysuria or urinary frequency. He had noted some bilateral lower extremity swelling which improved with elevation. - Related Data Home Medications Medication Instructions Recorded Confirmed Alendronate Sodium [Fosamax] 70 mg PO TU 12/19/18 03/31/19 Baclofen [Lioresal] 20 mg PO TID 12/19/18 03/31/19 Fluticasone/Vilanterol [Breo 1 puff INHALATION RT-DAILY 12/19/18 03/31/19 Ellipta 100-25 Mcg Inhaler] Primidone [Mysoline] 50 mg PO TID 12/19/18 03/31/19 Teriflunomide [Aubagio] 14 mg PO DAILY 12/19/18 03/31/19 Previous Rx's Medication Instructions Recorded Ipratropium-Albuterol Nebulize 3 ml INHALATION RT-QID ampul.neb 12/24/18 [Duoneb 0.5 mg-3 mg/3 ml Soln] Levothyroxine Sodium [Synthroid] 112 mcg PO DAILY@0630 tab 12/24/18 Cephalexin [Keflex] 500 mg PO TID #30 cap 03/31/19 Allergies Allergy/AdvReac Type Severity Reaction Status Date / Time No Known Allergies Allergy Verified 03/31/19 20:04 Review of Systems ROS Statement: Those systems with pertinent positive or pertinent negative responses have been documented in the HPI. ROS Other: All systems not noted in ROS Statement are negative. Past Medical History Past Medical History: Asthma, COPD, Hyperlipidemia, Thyroid Disorder Additional Past Medical History / Comment(s): MS History of Any Multi-Drug Resistant Organisms: None Reported Past Surgical History: No Surgical Hx Reported Past Anesthesia/Blood Transfusion Reactions: No Reported Reaction Past Psychological History: No Psychological Hx Reported Smoking Status: Former smoker Past Alcohol Use History: None Reported Past Drug Use History: None Reported General Exam Limitations: physical limitation General appearance: alert, in no apparent distress Head exam: Present: atraumatic, normocephalic Eye exam: Present: normal appearance, PERRL ENT exam: Present: mucous membranes dry, other (Poor dentition) Neck exam: Present: normal inspection, full ROM. Absent: tenderness, meningismus Respiratory exam: Present: decreased breath sounds. Absent: respiratory distress Cardiovascular Exam: Present: regular rate, normal rhythm GI/Abdominal exam: Present: soft. Absent: distended, tenderness Extremities exam: Present: normal capillary refill, pedal edema (Trace pedal edema) Neurological exam: Present: alert, oriented X3, CN II-XII intact. Absent: motor sensory deficit Psychiatric exam: Present: normal affect, normal mood Skin exam: Present: warm, dry, intact. Absent: cyanosis, diaphoretic Course Vital Signs 03/31/19 03/31/19 18:23 19:15 Temperature 99.5 F 98.5 F Pulse Rate 91 82 Respiratory 18 18 Rate Blood Pressure 131/72 146/90 O2 Sat by Pulse 97 95 Oximetry Medical Decision Making - Medical Decision Making 58-year-old female presenting with fever. No symptoms. Workup does reveal normal CBC, normal CMP, urinalysis showing greater than 182 white cells consistent with urinary tract infection. Chest x-ray negative for focal pneumonia. Blood culture and urine cultures are pending. I would prefer this patient be admitted for IV antibiotics, however she declines, requesting outpatient treatment. Will maintain oral hydration at home. Will take antibiotics awaiting culture results. - Lab Data Result diagrams: 03/31/19 18:48 03/31/19 18:48 Lab Results 03/31/19 03/31/19 03/31/19 Range/Units 18:48 18:48 18:48 WBC 7.5 (3.8-10.6) k/uL RBC 4.13 (3.80-5.40) m/uL Hgb 12.1 (11.4-16.0) gm/dL Hct 36.2 (34.0-46.0) % MCV 87.7 (80.0-100.0) fL MCH 29.3 (25.0-35.0) pg MCHC 33.5 (31.0-37.0) g/dL RDW 13.7 (11.5-15.5) % Plt Count 260 (150-450) k/uL Neutrophils % 75 % Lymphocytes % 14 % Monocytes % 8 % Eosinophils % 1 % Basophils % 1 % Neutrophils # 5.6 (1.3-7.7) k/uL Lymphocytes # 1.1 (1.0-4.8) k/uL Monocytes # 0.6 (0-1.0) k/uL Eosinophils # 0.1 (0-0.7) k/uL Basophils # 0.1 (0-0.2) k/uL Sodium 137 (137-145) mmol/L Potassium 4.1 (3.5-5.1) mmol/L Chloride 103 (98-107) mmol/L Carbon Dioxide 26 (22-30) mmol/L Anion Gap 8 mmol/L BUN 15 (7-17) mg/dL Creatinine 0.63 (0.52-1.04) mg/dL Est GFR (CKD-EPI)AfAm >90 (>60 ml/min/1.73 sqM) Est GFR (CKD-EPI)NonAf >90 (>60 ml/min/1.73 sqM) Glucose 116 H (74-99) mg/dL Plasma Lactic Acid Viadl 1.1 (0.7-2.0) mmol/L Calcium 9.8 (8.4-10.2) mg/dL Total Bilirubin 0.3 (0.2-1.3) mg/dL AST 19 (14-36) U/L ALT 16 (9-52) U/L Alkaline Phosphatase 97 (38-126) U/L Total Protein 6.8 (6.3-8.2) g/dL Albumin 4.0 (3.5-5.0) g/dL Urine Color Urine Appearance (Clear) Urine pH (5.0-8.0) Ur Specific [place] (1.001-1.035) Urine Protein (Negative) Urine Glucose (UA) (Negative) Urine Ketones (Negative) Urine Blood (Negative) Urine Nitrite (Negative) Urine Bilirubin (Negative) Urine Urobilinogen (<2.0) mg/dL Ur Leukocyte Esterase (Negative) Urine RBC (0-5) /hpf Urine WBC (0-5) /hpf Urine WBC Clumps (None) /hpf Urine Bacteria (None) /hpf Urine Mucus (None) /hpf 03/31/19 Range/Units 19:20 WBC (3.8-10.6) k/uL RBC (3.80-5.40) m/uL Hgb (11.4-16.0) gm/dL Hct (34.0-46.0) % MCV (80.0-100.0) fL MCH (25.0-35.0) pg MCHC (31.0-37.0) g/dL RDW (11.5-15.5) % Plt Count (150-450) k/uL Neutrophils % % Lymphocytes % % Monocytes % % Eosinophils % % Basophils % % Neutrophils # (1.3-7.7) k/uL Lymphocytes # (1.0-4.8) k/uL Monocytes # (0-1.0) k/uL Eosinophils # (0-0.7) k/uL Basophils # (0-0.2) k/uL Sodium (137-145) mmol/L Potassium (3.5-5.1) mmol/L Chloride (98-107) mmol/L Carbon Dioxide (22-30) mmol/L Anion Gap mmol/L BUN (7-17) mg/dL Creatinine (0.52-1.04) mg/dL Est GFR (CKD-EPI)AfAm (>60 ml/min/1.73 sqM) Est GFR (CKD-EPI)NonAf (>60 ml/min/1.73 sqM) Glucose (74-99) mg/dL Plasma Lactic Acid Vidal (0.7-2.0) mmol/L Calcium (8.4-10.2) mg/dL Total Bilirubin (0.2-1.3) mg/dL AST (14-36) U/L ALT (9-52) U/L Alkaline Phosphatase (38-126) U/L Total Protein (6.3-8.2) g/dL Albumin (3.5-5.0) g/dL Urine Color Yellow Urine Appearance Cloudy H (Clear) Urine pH 6.5 (5.0-8.0) Ur Specific [place] 1.015 (1.001-1.035) Urine Protein Trace H (Negative) Urine Glucose (UA) Negative (Negative) Urine Ketones Negative (Negative) Urine Blood Trace H (Negative) Urine Nitrite Positive H (Negative) Urine Bilirubin Negative (Negative) Urine Urobilinogen <2.0 (<2.0) mg/dL Ur Leukocyte Esterase Large H (Negative) Urine RBC 8 H (0-5) /hpf Urine WBC >182 H (0-5) /hpf Urine WBC Clumps Many H (None) /hpf Urine Bacteria Occasional H (None) /hpf Urine Mucus Moderate H (None) /hpf Disposition Clinical Impression: UTI (urinary tract infection) Disposition: HOME SELF-CARE Condition: Fair Instructions (If sedation given, give patient instructions): Urinary Tract Infection in Women (ED) Prescriptions: Cephalexin [Keflex] 500 mg PO TID #30 cap Is patient prescribed a controlled substance at d/c from ED?: No Referrals: Joanna Butt DO [Primary Care Provider] - 1-2 days Time of Disposition: 20:27
[2019-03-31 18:59] LABS: Basophils # (A) 0.1 k/uL (0-0.2); Basophils % (A) 1 %; Eosinophils # (A) 0.1 k/uL (0-0.7); Eosinophils % (A) 1 %; HCT 36.2 % (34.0-46.0); HGB 12.1 gm/dL (11.4-16.0); Lymphocytes # (A) 1.1 k/uL (1.0-4.8); Lymphocytes % (A) 14 %; MCH 29.3 pg (25.0-35.0); MCHC 33.5 g/dL (31.0-37.0); MCV 87.7 fL (80.0-100.0); Mean Platelet Volume 8.4; Monocytes # (A) 0.6 k/uL (0-1.0); Monocytes % (A) 8 %; Neutrophils # (A) 5.6 k/uL (1.3-7.7); Neutrophils % (A) 75 %; Platelet Count 260 k/uL (150-450); RBC 4.13 m/uL (3.80-5.40); RDW 13.7 % (11.5-15.5); WBC 7.5 k/uL (3.8-10.6)
--- NOTE | 2019-03-31 19:01 | XR ---
EXAMINATION TYPE: XR chest 2V DATE OF EXAM: 03/31/2019 COMPARISON: 12/22/2018 HISTORY: Fever TECHNIQUE: Frontal and lateral views of the chest are obtained. FINDINGS: Heart and mediastinum are normal. Lungs are clear. Diaphragm is normal. Bony thorax is int act. IMPRESSION: No active cardiopulmonary disease. No change.
[2019-03-31 19:09] LABS: ALT 16 U/L (9-52); AST 19 U/L (14-36); African American GFR (CKD) >90 (>60 ml/min/1.73 sqM); Alkaline Phosphatase 97 U/L (38-126); Anion Gap 8 mmol/L; Blood Urea Nitrogen 15 mg/dL (7-17); Calcium 9.8 mg/dL (8.4-10.2); Carbon Dioxide 26 mmol/L (22-30); Chloride 103 mmol/L (98-107); Glucose 116 mg/dL (74-99); Potassium 4.1 mmol/L (3.5-5.1); Sodium 137 mmol/L (137-145); Total Bilirubin 0.3 mg/dL (0.2-1.3); Total Protein 6.8 g/dL (6.3-8.2)
[2019-03-31 19:17] VITALS: BP 146/90; PULSE 82; TEMP 98.5
[2019-03-31 19:59] LABS: Appearance,Urine Cloudy (Clear); Bacteria,Urine Occasional /hpf; Bilirubin,Urine Negative (Negative); Blood,Urine Trace (Negative); Color,Urine Yellow; Glucose,Urine (UA) Negative (Negative); Ketones,Urine Negative (Negative); Leukocyte Esterase,Urine Large (Negative); Mucus,Urine Moderate /hpf; Nitrite,Urine Positive (Negative); PH, Urine 6.5 (5.0-8.0); Protein,Urine Trace (Negative); RBC,Urine 8 /hpf (0-5); Specific Gravity,Urine 1.015 (1.001-1.035); Urobilinogen,Urine <2.0 mg/dL (<2.0); WBC,Urine >182 /hpf (0-5)
[2019-03-31] MEDS ORDERED: cefTRIAXone IN SWFI 1,000 MG/10 ML SYRINGE IVP STA (20:07)
[2019-03-31] MEDS ORDERED: SODIUM CHLORIDE 0.9% 500 ML 500 ML IV ONE (20:08)
[2019-03-31] MEDS ORDERED: SODIUM CHLORIDE 0.9% 1,000 ML IV SCH (20:15)
== END 2019-03-31 21:09 | disposition home or self-care (01) ==
LOC: EC 17:53
DX: N39.0 Urinary tract infection, site not specified (principal); J44.9 Chronic obstructive pulmonary disease, unspecified; G35 Multiple sclerosis; Z87.891 Personal history of nicotine dependence; Z79.51 Long term (current) use of inhaled steroids; Z79.899 Other long term (current) drug therapy; Z53.8 Procedure and treatment not carried out for other reasons
CPT/HCPCS: 36415; 80053; 83605; 85025; 81001; 87040; 87086; 87077; 87186; 71046; 99284; 96374; 96361; 51701; J0696